=== PATIENT | female | born 1950 | race Caucasian/White ===

== ENCOUNTER 2017-07-13 22:44 | Emergency (ER) | payer MEDICARE, OTHER, SELFPAY ==
[2017-07-13 22:45] VITALS: BP 149/78; PULSE 90; RESP 18; TEMP 36.9; O2SAT 100; BMI 32.0
--- NOTE | 2017-07-13 22:59 | ED.VISSUMM ---
- ER Visit Summary Date of Service: 07/13/17 Chief Complaint: [] Right thigh wound History of Present Illness: The patient is a 67 F [] patient has a superficial right inner thigh wound that she postulates is from a bug bite or tick bite. Denies fevers. Reports slight pinpoint discomfort. Denies significant drainage from the wound. No other complaints at this time. Physical Examination: [] Afebrile, vital signs stable. 67-year-old female no acute distress. Conversational. Examination of the extremities reveals a small 2.5 cm circumferential nonindurated nonfluctuant localized skin wound. There is no signs of cellulitis. There is no inguinal lymphadenopathy. Test Results: [] None. Emergency Department Course and Treatment: [] Patient was given Bactrim DS and Keflex orally in the emergency department as well as prescriptions for the same with instructions to follow-up with the primary care physician. Treatment Plan: [] Outpatient antibiotic treatment. Disposition: [] Discharge, stable. Impression: [] Local wound infection This note was generated with [employer] dictation software. It may contain incorrect words, spelling, and punctuation that were not noted in review of the chart prior to signing ED Disposition - Plan for ED Patient: Chief Complaint: Bite Referrals: Noah Kitchen DO [Primary Care Provider] -
--- NOTE | 2017-07-13 23:01 | ED.DEP ---
ED Disposition - Plan for ED Patient: Disposition: Home or Assisted Living Chief Complaint: Bite Instructions: Wound Care Prescriptions: Cephalexin [Keflex] 500 mg PO Q6 #30 cap Sulfamethoxazole/Trimethoprim [Bactrim Ds Tablet] 1 ea PO BID #14 tab Referrals: Noah Kitchen DO [Primary Care Provider] -
[2017-07-13] MEDS: Smz/Tmp Ds Tablet 1 TABLET PO (23:18)
[2017-07-13] MEDS: Cephalexin 250 MG Capsule 500 MG PO (23:19)
== END 2017-07-13 23:20 | disposition home or self-care (01) ==
PROVIDERS: Emergency Provider Emergency Medicine; Family Provider Family Medicine; PCP Family Medicine
DX: S70.921A Unspecified superficial injury of right thigh, initial encounter (principal); L08.9 Local infection of the skin and subcutaneous tissue, unspecified; W57.XXXA Bitten or stung by nonvenomous insect and other nonvenomous arthropods, initial encounter; Y93.9 Activity, unspecified; Y92.9 Unspecified place or not applicable; I10 Essential (primary) hypertension
CPT/HCPCS: 99283

== ENCOUNTER → 2018-01-28 10:57 | Outpatient (CLI) | payer OTHER, MEDICAID, SELFPAY ==
[2018-01-28 14:21] VITALS: BMI 33.4
[2018-01-29 11:07] LABS: Mucous, Urine 0 SEEN /hpf (<or=2+)
[2018-01-29 11:11] LABS: Color, Urine Straw (Yellow); Glucose, Dipstick Normal (Normal); Ketone-Dipstick Negative (Negative); Leukocyte Esterase-Dipstick 100 /ul (Negative); Nitrite-Dipstick Negative (Negative); Occult Blood-Urine 25 /ul (Negative); Protein-Dipstick Negative (Negative); Specific Gravity, Urine 1.005 (1.002-1.030); Urine Bilirubin Dipstick Negative (Negative); Urine Clarity Clear (Clear); Urine Urobilinogen Normal (Normal)
[2018-01-29 11:28] LABS: White Blood Cells 5-10 SEEN /hpf (0-5)
[2018-01-29 11:29] LABS: Bacteria RARE /hpf (None Seen); Red Blood Cells-Urine 0-5 SEEN /hpf (0-5); Squamous Epithelial Cells - UA 0-5 SEEN /hpf (5-10)
== END ==
PROVIDERS: Family Provider Family Medicine; PCP Family Medicine; Referring Provider Nurse Practitioner Family; Visit Provider Nurse Practitioner Family
DX: R30.0 Dysuria (principal)
CPT/HCPCS: 81001; 87086; 87088

== ENCOUNTER 2018-01-30 09:39 | Emergency (ER) | payer MEDICARE, MEDICAID, SELFPAY ==
[2018-01-28 14:21] VITALS: BMI 33.4
[2018-01-30 09:40] VITALS: BP 162/71; PULSE 76; RESP 18; TEMP 36.4; O2SAT 99; BMI 32.2
--- NOTE | 2018-01-30 09:53 | ED.VISSUMM ---
- ER Visit Summary Date of Service: 01/30/18 Chief Complaint: Left leg pain History of Present Illness: The patient is a 67 F presenting with left leg pain intermittently for the past week. She is concerned about possibility of blood clot. She states she had a DVT/PE in 1979 when she was . She is not on anticoagulants. She has not had any blood clots since that time. She denies chest pain or shortness of breath. Denies fever. Denies trauma. Denies other complaints. Physical Examination: Vitals are stable. Patient is afebrile. Alert no acute distress. HEENT exam is unremarkable. Neck is supple. Lungs are clear and equal bilaterally. Heart is regular rate and rhythm. Abdomen is soft nontender nondistended. No guarding or rebound Extremities left medial mild calf tenderness, no swelling. No warmth or erythema. Normal distal pulses. Skin is warm and dry. No focal neurologic deficit. Remainder of exam is unremarkable. Emergency Department Course and Treatment: Venous Doppler shows no evidence of DVT. Patient is able to ambulate in the ED without difficulty. She is comfortable with discharge home and follow-up with primary care physician. She is advised to return to ED for any worsening complaints. Disposition: Discharge home Impression: Left lower extremity pain This note was generated with [employer] dictation software. It may contain incorrect words, spelling, and punctuation that were not noted in review of the chart prior to signing ED Disposition - Plan for ED Patient: Chief Complaint: Lower Extremity Injury Instructions: ED Veins Varicose Referrals: Noah Kitchen DO [Primary Care Provider] -
--- NOTE | 2018-01-30 09:58 | VDLE_ITS ---
Reason For Study: LEG PAIN RIGHT LEFT CFV is compressible, spontaneous, phasic, GSV is normal. competent and demonstrates normal CFV is compressible, spontaneous, phasic, augmentation. competent, and demonstrates normal Procedure augmentation. Exam performed portable in ED. FV is compressible, spontaneous, phasic, A preliminary report was called and/or faxed competent and demonstrates normal to Dr. Godinez. augmentation. POP V is compressible, spontaneous, phasic, competent and demonstrates normal augmentation. T/P Trunk is compressible. PTV is compressible. LT PerV is compressible. Interpretation Summary Deep veins of the left lower extremity are patent and compressible segmentally. There is no evidence of left lower extremity deep vein thrombosis. Valvular competence appears intact within the proximal deep venous system on the left . The left greater saphenous vein appears patent and compressible segmentally. Ordering Physician: Lucila Godinez Referring Physician: Jorge Luis Kithcen M.D. Performed By: Malathi Galo RVT
--- NOTE | 2018-01-30 10:39 | ED.DEP ---
ED Disposition - Plan for ED Patient: Chief Complaint: Lower Extremity Injury Instructions: ED Veins Varicose Referrals: Noah Kitchen DO [Primary Care Provider] -
[2018-01-30 10:58] VITALS: RESP 16
--- NOTE | 2018-01-30 10:58 | ED.RN ---
REVIEWED D/C INSTRUCTIONS, FOLLOW UP CARE, AND S/S THAT WOULD WARRANT A RETURN TO THE ED WITH PT. PT VERBALIZED AN UNDERSTANDING AND DENIES FURTHER QUESTIONS FOR THIS RN. PT SKIN P/W/D, RESP EVEN AND UNLABORED, PT A&O X 3, NO DISTRESS NOTED. PT AMBULATED OUT OF ED, GAIT STEADY.
== END 2018-01-30 10:59 | disposition home or self-care (01) ==
PROVIDERS: Emergency Provider Emergency Medicine; Family Provider Family Medicine; PCP Family Medicine
DX: I83.812 Varicose veins of left lower extremity with pain (principal); Z86.711 Personal history of pulmonary embolism; I10 Essential (primary) hypertension; Z79.899 Other long term (current) drug therapy; R30.0 Dysuria
CPT/HCPCS: 87086; 87088; 93971; 99282

== ENCOUNTER → 2018-01-30 14:57 | Outpatient (CLI) | payer MEDICAID, MEDICARE, SELFPAY ==
[2018-01-30 09:40] VITALS: BMI 32.2
== END ==
PROVIDERS: Family Provider Family Medicine; PCP Family Medicine; Referring Provider Nurse Practitioner Family; Visit Provider Nurse Practitioner Family
DX: R30.0 Dysuria (principal)
CPT/HCPCS: 87086; 87088

== ENCOUNTER 2018-03-13 20:34 | Observation (INO) | payer MEDICARE, MEDICAID, SELFPAY ==
[2018-03-13] VITALS (7 sets, daily range): BP systolic 136–153; BP diastolic 55–102; PULSE 67–84; RESP 14–18; TEMP 36.3; O2SAT 97–99; BMI 32.2; BMI 33.7
--- NOTE | 2018-03-13 20:51 | CT_ITS ---
STUDY: CT BRAIN WITHOUT CONTRAST REASON FOR EXAM: Female, 67 years old. Headache and paresthesias. RADIATION DOSAGE (If Supplied By Facility): CTDIvol = ( 44.99 ) mGy, DLP = ( 745.49 ) mGycm TECHNIQUE: Transaxial CT imaging of the brain was performed without administration of intravenous contrast material. Individualized dose optimization techniques were used for this CT. COMPARISON: None. FINDINGS: Normal soft tissue structures. Normal calvarium. Normal size ventricles and extra-axial spaces for the patient's age. Normal white matter tracts of the cerebral hemispheres. There are small punctate calcifications of the basal ganglia which are seen in the aging brain as a normal variant. Normal brainstem. Normal cerebellum. There is no intracranial hemorrhage. There are no findings of an acute ischemic infarction. Mild mucosal thickening in the base of the left maxillary sinus. CT/Brain/Head without Contrast IMPRESSION: Normal unenhanced CT scan of the brain. Mild mucosal thickening in the base of the left maxillary sinus. Electronically Signed: Ester Kline MD at 22:01 EST , Service support ,
[2018-03-13 21:11] LABS: Bedside Glucose 80 mg/dL (70-110)
[2018-03-13 21:12] LABS: Basophil# 0.08 X10^3/uL; Eosinophil# 0.24 X10^3/uL; Eosinophils% 2.9 % (0-5); Hemoglobin 11.7 g/dl (12.0-15.0); Lymphocyte % 29.9 % (19-41); Mean Corp Hgb Conc 33.4 g/gl (32-36); Mean Corpuscular Hgb 30.2 pg (27.0-32.0); Mean Corpuscular Volume 90.2 fL (81-99); Mean Platelet Vol. 9.6 fl (6.2-12.0); Monocyte# 0.58 X10^3/uL; Monocyte% 6.9 % (0-10); Neutrophil # 4.95 X10^3/uL (2.7-7.7); Neutrophil % 59.1 % (47-70); POSITIVE COUNT NO; POSITIVE DIFFERENTIAL NO; POSITIVE MORPHOLOGY NO; Platelet Count 232 K/mm3 (150-450); RBC Distribution Width CV 13.1 % (11.6-14.6); Red Blood Count 3.88 M/mm3 (4.2-5.4); White Blood Count 8.4 K/mm3 (4.4-11.0)
--- NOTE | 2018-03-13 21:16 | RAD_ITS ---
STUDY: X-RAY CHEST REASON FOR EXAM: Female, 67 years old. Chest pain TECHNIQUE: Single frontal view of the chest. COMPARISON: None. FINDINGS: The lungs are clear and expanded. There is no demonstrated pleural abnormality. Normal size heart. Normal mediastinum and gisela. Normal visualized pulmonary arteries. Normal visualized aortic arch and descending thoracic aorta. Normal visualized thoracic spine. Normal visualized ribs, clavicles, and shoulders. There is no demonstrated abnormality of the visualized soft tissue structures of the upper abdomen. RAD/Chest 1 View IMPRESSION: Normal x-ray examination of the chest. Electronically Signed: Santosh Corbin MD at 22:29 EST , Service support ,
[2018-03-13 21:19] LABS: Partial Thromboplast Time 25.9 Seconds (24.1-36.2)
[2018-03-13 21:27] LABS: Anion Gap 9 (5-15); BUN 16 mg/dL (7-18); BUN/Creat Ratio 15.1 RATIO (10-20); Calcium,Total 8.7 mg/dL (8.5-10.1); Chloride 110 mmol/L (98-107); Creatinine, Serum 1.06 mg/dL (0.55-1.02); EST Glomerular Filtration Rate 55 mL/min (>60); Est Glom Filt Rate - Afr Amer 66 mL/min (>60); Estimated Creatinine Clearance 36.49 ml/min; Glucose 75 mg/dL (74-106); Potassium 3.8 mmol/L (3.5-5.1); Sodium Level 143 mmol/L (136-145)
--- NOTE | 2018-03-13 22:34 | ED.VISSUMM ---
- ER Visit Summary Date of Service: 03/13/18 Chief Complaint: Headache, dizziness, tingling. History of Present Illness: The patient is a 67 F reports symptoms started 745 1 hour prior to arrival. States that right headache dizziness eye symptoms an hour ago. States been having intermittent tingling left side. Reports troubles get her words out at that time. That is improving. Similar symptoms in the past with TIA. States been having some weakness over the past week with 2 falls in the lower extremities. No injuries from this. She states she does not take aspirin to the causing GI upset. No recent illness of cough. No urinary symptoms. No vomiting or diarrhea. Patient is a diabetic. No cardiac history. Physical Examination: General: Alert and oriented ?3, no acute distress HEENT: Normocephalic, atraumatic. Moist mucosa membranes Neck: supple, nontender. Cardiovascular: Regular rate and rhythm, no murmurs Respiratory: Normal breath sounds, symmetric, no distress Abdomen: Soft, nontender, nondistended Extremities: Nontender, no edema, pulses intact ?4 Neuro: NIH equals 2 for slight drift of both lower extremities. There is some mild weakness at the hip flexors bilaterally. No paresthesias. Test Results: EKG sinus rate of 83, no ST changes. Isolated T wave inversion in leads III. Hemoglobin 11.7. Creatinine 1.06. Coags normal per troponin negative. Finger glucose 80. Chest x-ray negative. CT head no acute process intracranially left maxillary mucosal thickening noted. Emergency Department Course and Treatment: Patient NIH of 2, no indication for TPA. Workup initiated negative. Concerns of patient reporting expressive dysphasia and similar symptoms with her TIA in the past. She does not take aspirin due to causing GI upset. Discussed with hospitalist Dr. Fitch for admission for further workup. Treatment Plan: [] Disposition: Admission Impression: 1. TIA This note was generated with [employer] dictation software. It may contain incorrect words, spelling, and punctuation that were not noted in review of the chart prior to signing ED Disposition - Plan for ED Patient: Disposition: Acute Care Hospital [facility] Diagnosis: TIA (transient ischemic attack) Referrals: Noah Kitchen DO [Primary Care Provider] -
--- NOTE | 2018-03-13 22:38 | ED.DCSUM_ITS ---
- ER Visit Summary Date of Service: 03/13/18 Chief Complaint: Headache, dizziness, tingling. History of Present Illness: The patient is a 67 F reports symptoms started 745 1 hour prior to arrival. States that right headache dizziness eye symptoms an hour ago. States been having intermittent tingling left side. Reports troubles get her words out at that time. That is improving. Similar symptoms in the past with TIA. States been having some weakness over the past week with 2 falls in the lower extremities. No injuries from this. She states she does not take aspirin to the causing GI upset. No recent illness of cough. No urinary symptoms. No vomiting or diarrhea. Patient is a diabetic. No cardiac history. Physical Examination: General: Alert and oriented ?3, no acute distress HEENT: Normocephalic, atraumatic. Moist mucosa membranes Neck: supple, nontender. Cardiovascular: Regular rate and rhythm, no murmurs Respiratory: Normal breath sounds, symmetric, no distress Abdomen: Soft, nontender, nondistended Extremities: Nontender, no edema, pulses intact ?4 Neuro: NIH equals 2 for slight drift of both lower extremities. There is some mild weakness at the hip flexors bilaterally. No paresthesias. Test Results: EKG sinus rate of 83, no ST changes. Isolated T wave inversion in leads III. Hemoglobin 11.7. Creatinine 1.06. Coags normal per troponin negative. Finger glucose 80. Chest x-ray negative. CT head no acute process intracranially left maxillary mucosal thickening noted. Emergency Department Course and Treatment: Patient NIH of 2, no indication for TPA. Workup initiated negative. Concerns of patient reporting expressive dysphasia and similar symptoms with her TIA in the past. She does not take aspirin due to causing GI upset. Discussed with hospitalist Dr. Ficth for admission for further workup. Treatment Plan: [] Disposition: Admission Impression: 1. TIA This note was generated with [employer] dictation software. It may contain incorrect words, spelling, and punctuation that were not noted in review of the chart prior to signing ED Disposition - Plan for ED Patient: Disposition: Acute Care Hospital [facility] Diagnosis: TIA (transient ischemic attack) Referrals: Noah Kitchen DO [Primary Care Provider] -
--- NOTE | 2018-03-13 22:55 | PCM.HP.STD ---
Problem List (1) Osteoporosis Status: Chronic Qualifiers: (2) Vitamin deficiency Status: Chronic (3) GERD (gastroesophageal reflux disease) Status: Chronic (4) IBS (irritable bowel syndrome) Status: Chronic (5) High cholesterol Status: Chronic (6) Hypertension Status: Chronic History of Present Illness Date of Admission: 03/13/18 Chief Complaint: Dizziness, blurry vision, headache. The patient is a 67 year old F with past medical history as mentioned above presented to the emergency room because of multiple complaints including dizziness, headache, blurry vision and tingling. The patient is a very poor informant and was not able to provide consistent history and not able to provide any details of any symptoms that she had. She complains of dizziness, was not able to state when this dizziness started, associated with what she described glassy eyes or blurry vision and swelling about her eyes. She kept going on and on with multiple symptoms and I could not make the patient focus on one symptom and provide good detailed history. She complained of bilateral leg weakness which is equal in both sides, had couple of falls over the last week without significant trauma. She complains of chronic left upper extremity tingling and she thinks that started after she had blown IV line when she was at the hospital. Today, she went to her PCPs office, was seen for abdominal pain/discomfort and was started empirically on ciprofloxacin and Flagyl for presumed diverticulitis according to the patient. She has history of hypertension which seems to be under control with Norvasc, losartan and metoprolol. She has a history of hyperlipidemia and she has been on statins. She has history of irritable bowel syndrome and GERD and she had PPI. She has been frequent visits to her PCPs office as well as colorectal surgery as outpatient for those chronic GI problems. In the emergency department, her vital signs were stable. Her routine blood work was remarkable for hemoglobin of 11.7 g/dL, otherwise normal. EKG revealed normal sinus rhythm without evidence of acute ischemic changes or cardiac arrhythmias. Troponin is negative. Chest x-ray showed no acute findings. CT scan brain showed no acute intracranial hemorrhage. She is being admitted for symptoms of dizziness, blurry vision, tingling on the left arm and bilateral leg weakness which are not typical for either stroke or TIA and she is being admitted for evaluation. Past Medical History Past Medical History (Chronic Problems): Chronic Problems (Last Updated 03/13/18 @ 22:55 by Bryon Fitch MD) Osteoporosis (Chronic) Colitis (Chronic) Segmental and somatic dysfunction of cervical region (Chronic) Segmental and somatic dysfunction of lumbar region (Chronic) Vitamin deficiency (Chronic) GERD (gastroesophageal reflux disease) (Chronic) Polycystic ovary disease (Chronic) Osteopenia (Chronic) Kidney stones (Chronic) IBS (irritable bowel syndrome) (Chronic) High cholesterol (Chronic) Hypertension (Chronic) H/O emotional problems (Chronic) Cataracts, both eyes (Chronic) Asthma (Chronic) Arthritis (Chronic) Anemia (Chronic) Seasonal allergies (Chronic) Medical History: Medical History (Last Updated 03/13/18 @ 22:55 by Bryon Fitch MD) Colitis (Chronic) K52.9 Vitamin deficiency (Chronic) E56.9 GERD (gastroesophageal reflux disease) (Chronic) K21.9 Polycystic ovary disease (Chronic) E28.2 Osteopenia (Chronic) M85.80 Kidney stones (Chronic) N20.0 IBS (irritable bowel syndrome) (Chronic) K58.9 High cholesterol (Chronic) E78.00 Hypertension (Chronic) I10 H/O emotional problems (Chronic) F48.9 Cataracts, both eyes (Chronic) H26.9 Asthma (Chronic) J45.909 Arthritis (Chronic) M19.90 Anemia (Chronic) D64.9 Seasonal allergies (Chronic) J30.2 History of hysterectomy Z90.710 1982 Allergies albuterol Allergy (Severe, Verified 03/13/18 20:36) Chest tightness codeine Allergy (Severe, Verified 03/13/18 20:36) Nausea Sulfa (Sulfonamide Antibiotics) Allergy (Severe, Verified 03/13/18 20:36) Chest tightness dry throat tramadol Allergy (Severe, Verified 03/13/18 20:36) head spin colonidine Allergy (Severe, Uncoded 03/13/18 20:36) head spin narcotics Adverse Reaction (Unknown, Uncoded 03/13/18 20:36) Unknown antibiotics Adverse Reaction (Uncoded 03/13/18 20:36) Shortness of breath More of sensitivity Home Medications: Ambulatory Orders Medication Instructions Recorded atorvastatin 80 mg tablet 80 mg PO QDAY 06/04/17 losartan 100 mg tablet 100 mg PO QDAY 06/04/17 metoprolol succinate ER 100 mg 100 mg PO QDAY #90 tab 06/12/17 tablet,extended release 24 hr furosemide 20 mg tablet 20 mg PO QDAY #30 tab 09/22/17 amlodipine 10 mg tablet 10 mg PO QDAY #90 tab 01/28/18 esomeprazole magnesium 40 mg 40 mg PO QDAY #90 cap 02/20/18 capsule,delayed release ciprofloxacin 500 mg tablet 500 mg PO Q12H #14 tab 03/13/18 metronidazole 500 mg tablet 500 mg PO TID #21 tab 03/13/18 Surgical History: Surgical History (Last Reviewed 02/19/18 @ 17:39 by Radha Vázquez) History of appendectomy Z90.49 Mid 70's History of bilateral cataract extraction Z98.41, Z98.42 History of knee surgery Z98.890 2001 History of uterine suspension procedure Z98.890, Z87.448 Mid 70's Surgical History: cataract, hysterectomy Psychiatric History: - - History of emotional problems. 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 Smoking Status: Never smoker Alcohol: None Drugs: None - *Family History Maternal Family History: Family History (Last Reviewed 02/19/18 @ 17:39 by Radha Vázquez) Father Anesthesia complication Angina pectoris Anxiety Asthma Bleeding disorder Liver cancer Heart disease Hypertension CVA (cerebral vascular accident) Mother Arthritis Osteoporosis Respiratory disease Thyroid disorder Grandfather Alcohol abuse Grandmother Depression Kidney disease Psychiatric care Paternal Family History: Family History (Last Reviewed 02/19/18 @ 17:39 by Radha Vázquez) Father Anesthesia complication Angina pectoris Anxiety Asthma Bleeding disorder Liver cancer Heart disease Hypertension CVA (cerebral vascular accident) Mother Arthritis Osteoporosis Respiratory disease Thyroid disorder Grandfather Alcohol abuse Grandmother Depression Kidney disease Psychiatric care Review of Systems Constitutional: Reports: Weakness. Denies: Anorexia, Chills, Fever Eyes: Reports: Blurred vision. Denies: Double vision, Drainage, Redness HEENT: Denies: Difficulty Hearing, Ear Pain, Eye Pain, Nasal Congestion, Sore Throat Cardiovascular: Reports: Light Headedness. Denies: Chest Pain, Chest Pressure, Heaviness, Palpitations, Syncope Respiratory: Denies: Cough, Pleuritic Pain, Shortness of Breath, Sputum production, Wheezing Gastrointestinal: Reports: Abdominal Pain. Denies: Constipation, Diarrhea, Nausea, Vomiting Genitourinary: Denies: Dysuria, Frequency, Hematuria Musculoskeletal: Denies: Arm Pain, Back Pain, Foot Pain Skin: Denies: Dryness, Rash Neurological: Reports: Blurred vision, Headaches, Numbness, Tingling. Denies: Balance problems, Change in Speech, Confusion Psychiatric: Denies: Anxiety, Depression Endocrine: Denies: Change in Body Habitus, Polydipsia VTE Information - Inpt Only VTE Present on Admission: No VTE Mechan Device Prophylaxis: None VTE Pharm Prophylaxis ordered?: Yes - Physical Exam General: Alert, Oriented x3, Cooperative, No apparent distress HEENT: Atraumatic, PERRLA, EOMI, Normocephalic Oral: Moist Mucosa, No Gingival or Mucosal Lesions/ Ulcerations Neck: Supple, No JVD, Negative Carotid Bruits, Trachea Midline, Thyroid Normal Size and Texture Lungs: Clear to auscultation, No rhonchi, No wheeze, Diminished Cardiovascular: Regular rate, Regular Rhythm, Normal S1, Normal S2, No murmurs Abdomen: Bowel Sounds Present, Soft, Non Tender, Non-Distended, No Hepato-splenomegaly Extremities: No clubbing, No cyanosis, No edema Skin: No rashes, No breakdown Lymphatic: No Cervical, Supraclavicular, or Inguinal Adenopathy Neurological: Cranial nerves II-XII grossly intact, Motor Exam 5/5 strength throughout Psych/Mental Status: Normal Affect, Impulsive, Alert and oriented to time, place, person, mood and affect Vital Signs Temp Pulse Resp BP Pulse Ox 97.4 F L 76 18 140/67 H 99 03/13/18 20:37 03/13/18 22:30 03/13/18 22:30 03/13/18 22:30 03/13/18 22:30 Oxygen Flow Rate (L/min) 2 Oxygen Delivery Method Nasal Cannula Weight: 173 lb Body Mass Index (BMI) 33.7 Finger Stick Blood Glucose 80 Laboratory Tests Past 24 Hrs 03/13/18 03/13/18 03/13/18 21:02 21:02 21:02 WBC 8.4 RBC 3.88 L Hgb 11.7 L Hct 35.0 L MCV 90.2 MCH 30.2 MCHC 33.4 RDW 13.1 RDW Differential 43.0 Plt Count 232 MPV 9.6 Immature Gran % (Auto) 0.200 Neut % (Auto) 59.1 Lymph % (Auto) 29.9 Cottle % (Auto) 6.9 Eos % (Auto) 2.9 Baso % (Auto) 1.0 Absolute Neuts (auto) 5.0 Absolute Lymphs (auto) 2.50 Total Counted Not Reportable PT 13.0 INR 1.0 APTT 25.9 Sodium 143 Potassium 3.8 Chloride 110 H Carbon Dioxide 24.0 Anion Gap 9 BUN 16 Creatinine 1.06 H Estim Creat Clear Calc 36.49 Est GFR (MDRD) Af Amer 66 Est GFR (MDRD) Non-Af 55 L BUN/Creatinine Ratio 15.1 Glucose 75 Calcium 8.7 Troponin I < 0.015 POC Glucose 03/13/18 21:03 POC Glucose 80 Clinical Impression(s) from Imaging Studies Brain CT 03/13/18 20:51 IMPRESSION: Normal unenhanced CT scan of the brain. Mild mucosal thickening in the base of the left maxillary sinus. Electronically Signed: Ester Kline MD at 22:01 EST , Service support , Chest X-Ray 03/13/18 21:16 IMPRESSION: Normal x-ray examination of the chest. Electronically Signed: Santosh Corbin MD at 22:29 EST , Service support , Assessment/Plan This is a 67 years old female patient presented to the ED because of multiple complaints, she is a very poor informant, presented with dizziness, blurry or glassy vision with bilateral leg weakness and numbness on the left arm and she is being admitted for evaluation. #1 dizziness/blurry vision/bilateral leg weakness: Without focal symptoms. Her symptoms are not typical for either stroke or TIA. Patient is very poor informant, was not able to provide detailed history. She has history of emotional problems. At this time, I doubt that her symptoms are due to stroke or TIA. She did mention that she had a history of TIA in the past. Her vital signs are stable. EKG, chest x-ray and CT brain were unremarkable. Troponin is negative. Plan: Admit to PCU for observation, cardiac monitoring, NIH stroke scale, start baby aspirin, continue statins, MRI brain tomorrow morning, PT OT evaluation and treatment. At this time, I do not think that patient needs full stroke workup unless her MRI came back positive for acute stroke. #2 recent diagnosis of presumed diverticulitis: Patient saw her PCP today, started on oral metronidazole and levofloxacin for presumed diverticulitis. At this time, she denies any significant abdominal pain, no diarrhea or constipation. She is afebrile. Plan to continue oral Cipro Floxin and Flagyl. #3 hypertension: Blood pressure stable, continue Norvasc, losartan and metoprolol. #4 hyperlipidemia: Continue statins. #5 irritable bowel syndrome: She has been following up with her PCP as well as colorectal surgery as outpatient. #6 GERD: Continue PPI. #7 DVT prophylaxis: Subcu Lovenox. This note was generated with [employer] dictation software. It may contain incorrect words, spelling, and punctuation that were not noted in checking the note before signing. Code Visit OBSV E&M: 06021 Initial observation care L2
--- NOTE | 2018-03-13 23:00 | HP.PCM_ITS ---
Problem List (1) Osteoporosis Status: Chronic Qualifiers: (2) Vitamin deficiency Status: Chronic (3) GERD (gastroesophageal reflux disease) Status: Chronic (4) IBS (irritable bowel syndrome) Status: Chronic (5) High cholesterol Status: Chronic (6) Hypertension Status: Chronic History of Present Illness Date of Admission: 03/13/18 Chief Complaint: Dizziness, blurry vision, headache. The patient is a 67 year old F with past medical history as mentioned above presented to the emergency room because of multiple complaints including dizziness, headache, blurry vision and tingling. The patient is a very poor informant and was not able to provide consistent history and not able to provide any details of any symptoms that she had. She complains of dizziness, was not able to state when this dizziness started, associated with what she described glassy eyes or blurry vision and swelling about her eyes. She kept going on and on with multiple symptoms and I could not make the patient focus on one symptom and provide good detailed history. She complained of bilateral leg weakness which is equal in both sides, had couple of falls over the last week without significant trauma. She complains of chronic left upper extremity tingling and she thinks that started after she had blown IV line when she was at the hospital. Today, she went to her PCPs office, was seen for abdominal pain/discomfort and was started empirically on ciprofloxacin and Flagyl for presumed diverticulitis according to the patient. She has history of hypertension which seems to be under control with Norvasc, losartan and metoprolol. She has a history of hyperlipidemia and she has been on statins. She has history of irritable bowel syndrome and GERD and she had PPI. She has been frequent visits to her PCPs office as well as colorectal surgery as outpatient for those chronic GI problems. In the emergency department, her vital signs were stable. Her routine blood work was remarkable for hemoglobin of 11.7 g/dL, otherwise normal. EKG revealed normal sinus rhythm without evidence of acute ischemic changes or cardiac arrhythmias. Troponin is negative. Chest x-ray showed no acute findings. CT scan brain showed no acute intracranial hemorrhage. She is being admitted for symptoms of dizziness, blurry vision, tingling on the left arm and bilateral leg weakness which are not typical for either stroke or TIA and she is being admitted for evaluation. Past Medical History Past Medical History (Chronic Problems): Chronic Problems (Last Updated 03/13/18 @ 22:55 by Bryon Fitch MD) Osteoporosis (Chronic) Colitis (Chronic) Segmental and somatic dysfunction of cervical region (Chronic) Segmental and somatic dysfunction of lumbar region (Chronic) Vitamin deficiency (Chronic) GERD (gastroesophageal reflux disease) (Chronic) Polycystic ovary disease (Chronic) Osteopenia (Chronic) Kidney stones (Chronic) IBS (irritable bowel syndrome) (Chronic) High cholesterol (Chronic) Hypertension (Chronic) H/O emotional problems (Chronic) Cataracts, both eyes (Chronic) Asthma (Chronic) Arthritis (Chronic) Anemia (Chronic) Seasonal allergies (Chronic) Medical History: Medical History (Last Updated 03/13/18 @ 22:55 by Bryon Fitch MD) Colitis (Chronic) K52.9 Vitamin deficiency (Chronic) E56.9 GERD (gastroesophageal reflux disease) (Chronic) K21.9 Polycystic ovary disease (Chronic) E28.2 Osteopenia (Chronic) M85.80 Kidney stones (Chronic) N20.0 IBS (irritable bowel syndrome) (Chronic) K58.9 High cholesterol (Chronic) E78.00 Hypertension (Chronic) I10 H/O emotional problems (Chronic) F48.9 Cataracts, both eyes (Chronic) H26.9 Asthma (Chronic) J45.909 Arthritis (Chronic) M19.90 Anemia (Chronic) D64.9 Seasonal allergies (Chronic) J30.2 History of hysterectomy Z90.710 1982 Allergies albuterol Allergy (Severe, Verified 03/13/18 20:36) Chest tightness codeine Allergy (Severe, Verified 03/13/18 20:36) Nausea Sulfa (Sulfonamide Antibiotics) Allergy (Severe, Verified 03/13/18 20:36) Chest tightness dry throat tramadol Allergy (Severe, Verified 03/13/18 20:36) head spin colonidine Allergy (Severe, Uncoded 03/13/18 20:36) head spin narcotics Adverse Reaction (Unknown, Uncoded 03/13/18 20:36) Unknown antibiotics Adverse Reaction (Uncoded 03/13/18 20:36) Shortness of breath More of sensitivity Home Medications: Ambulatory Orders Medication Instructions Recorded atorvastatin 80 mg tablet 80 mg PO QDAY 06/04/17 losartan 100 mg tablet 100 mg PO QDAY 06/04/17 metoprolol succinate ER 100 mg 100 mg PO QDAY #90 tab 06/12/17 tablet,extended release 24 hr furosemide 20 mg tablet 20 mg PO QDAY #30 tab 09/22/17 amlodipine 10 mg tablet 10 mg PO QDAY #90 tab 01/28/18 esomeprazole magnesium 40 mg 40 mg PO QDAY #90 cap 02/20/18 capsule,delayed release ciprofloxacin 500 mg tablet 500 mg PO Q12H #14 tab 03/13/18 metronidazole 500 mg tablet 500 mg PO TID #21 tab 03/13/18 Surgical History: Surgical History (Last Reviewed 02/19/18 @ 17:39 by Radha Vázquez) History of appendectomy Z90.49 Mid 70's History of bilateral cataract extraction Z98.41, Z98.42 History of knee surgery Z98.890 2001 History of uterine suspension procedure Z98.890, Z87.448 Mid 70's Surgical History: cataract, hysterectomy Psychiatric History: - - History of emotional problems. [employer] History: No pertinent [employer] T[employer] history Smoking Status: Never smoker Alcohol: None Drugs: None - *Family History Maternal Family History: Family History (Last Reviewed 02/19/18 @ 17:39 by Radha Vázquez) Father Anesthesia complication Angina pectoris Anxiety Asthma Bleeding disorder Liver cancer Heart disease Hypertension CVA (cerebral vascular accident) Mother Arthritis Osteoporosis Respiratory disease Thyroid disorder Grandfather Alcohol abuse Grandmother Depression Kidney disease Psychiatric care Paternal Family History: Family History (Last Reviewed 02/19/18 @ 17:39 by Radha Vázquez) Father Anesthesia complication Angina pectoris Anxiety Asthma Bleeding disorder Liver cancer Heart disease Hypertension CVA (cerebral vascular accident) Mother Arthritis Osteoporosis Respiratory disease Thyroid disorder Grandfather Alcohol abuse Grandmother Depression Kidney disease Psychiatric care Review of Systems Constitutional: Reports: Weakness. Denies: Anorexia, Chills, Fever Eyes: Reports: Blurred vision. Denies: Double vision, Drainage, Redness HEENT: Denies: Difficulty Hearing, Ear Pain, Eye Pain, Nasal Congestion, Sore Throat Cardiovascular: Reports: Light Headedness. Denies: Chest Pain, Chest Pressure, Heaviness, Palpitations, Syncope Respiratory: Denies: Cough, Pleuritic Pain, Shortness of Breath, Sputum production, Wheezing Gastrointestinal: Reports: Abdominal Pain. Denies: Constipation, Diarrhea, N ausea, Vomiting Genitourinary: Denies: Dysuria, Frequency, Hematuria Musculoskeletal: Denies: Arm Pain, Back Pain, Foot Pain Skin: Denies: Dryness, Rash Neurological: Reports: Blurred vision, Headaches, Numbness, Tingling. Denies: Balance problems, Change in Speech, Confusion Psychiatric: Denies: Anxiety, Depression Endocrine: Denies: Change in Body Habitus, Polydipsia VTE Information - Inpt Only VTE Present on Admission: No VTE Mechan Device Prophylaxis: None VTE Pharm Prophylaxis ordered?: Yes - Physical Exam General: Alert, Oriented x3, Cooperative, No apparent distress HEENT: Atraumatic, PERRLA, EOMI, Normocephalic Oral: Moist Mucosa, No Gingival or Mucosal Lesions/ Ulcerations Neck: Supple, No JVD, Negative Carotid Bruits, Trachea Midline, Thyroid Normal Size and Texture Lungs: Clear to auscultation, No rhonchi, No wheeze, Diminished Cardiovascular: Regular rate, Regular Rhythm, Normal S1, Normal S2, No murmurs Abdomen: Bowel Sounds Present, Soft, Non Tender, Non-Distended, No Hepato- splenomegaly Extremities: No clubbing, No cyanosis, No edema Skin: No rashes, No breakdown Lymphatic: No Cervical, Supraclavicular, or Inguinal Adenopathy Neurological: Cranial nerves II-XII grossly intact, Motor Exam 5/5 strength throughout Psych/Mental Status: Normal Affect, Impulsive, Alert and oriented to time, place, person, mood and affect Vital Signs Temp Pulse Resp BP Pulse Ox 97.4 F L 76 18 140/67 H 99 03/13/18 20:37 03/13/18 22:30 03/13/18 22:30 03/13/18 22:30 03/13/18 22:30 Oxygen Flow Rate (L/min) 2 Oxygen Delivery Method Nasal Cannula Weight: 173 lb Body Mass Index (BMI) 33.7 Finger Stick Blood Glucose 80 Laboratory Tests Past 24 Hrs 03/13/18 03/13/18 03/13/18 21:02 21:02 21:02 WBC 8.4 RBC 3.88 L Hgb 11.7 L Hct 35.0 L MCV 90.2 MCH 30.2 MCHC 33.4 RDW 13.1 RDW Differential 43.0 Plt Count 232 MPV 9.6 Immature Gran % (Auto) 0.200 Neut % (Auto) 59.1 Lymph % (Auto) 29.9 [place] % (Auto) 6.9 Eos % (Auto) 2.9 Baso % (Auto) 1.0 Absolute Neuts (auto) 5.0 Absolute Lymphs (auto) 2.50 Total Counted Not Reportable PT 13.0 INR 1.0 APTT 25.9 Sodium 143 Potassium 3.8 Chloride 110 H Carbon Dioxide 24.0 Anion Gap 9 BUN 16 Creatinine 1.06 H Estim Creat Clear Calc 36.49 Est GFR (MDRD) Af Amer 66 Est GFR (MDRD) Non-Af 55 L BUN/Creatinine Ratio 15.1 Glucose 75 Calcium 8.7 Troponin I < 0.015 POC Glucose 03/13/18 21:03 POC Glucose 80 Clinical Impression(s) from Imaging Studies Brain CT 03/13/18 20:51 IMPRESSION: Normal unenhanced CT scan of the brain. Mild mucosal thickening in the base of the left maxillary sinus. Electronically Signed: Ester Kline MD at 22:01 EST , Service support , Chest X-Ray 03/13/18 21:16 IMPRESSION: Normal x-ray examination of the chest. Electronically Signed: Santosh Corbin MD at 22:29 EST , Service support , Assessment/Plan This is a 67 years old female patient presented to the ED because of multiple complaints, she is a very poor informant, presented with dizziness, blurry or glassy vision with bilateral leg weakness and numbness on the left arm and she is being admitted for evaluation. #1 dizziness/blurry vision/bilateral leg weakness: Without focal symptoms. Her symptoms are not typical for either stroke or TIA. Patient is very poor informant, was not able to provide detailed history. She has history of emotional problems. At this time, I doubt that her symptoms are due to stroke or TIA. She did mention that she had a history of TIA in the past. Her vital signs are stable. EKG, chest x-ray and CT brain were unremarkable. Troponin is negative. Plan: Admit to PCU for observation, cardiac monitoring, NIH stroke scale, start baby aspirin, continue statins, MRI brain tomorrow morning, PT OT evaluation and treatment. At this time, I do not think that patient needs full stroke workup unless her MRI came back positive for acute stroke. #2 recent diagnosis of presumed diverticulitis: Patient saw her PCP today, started on oral metronidazole and levofloxacin for presumed diverticulitis. At this time, she denies any significant abdominal pain, no diarrhea or constipation. She is afebrile. Plan to continue oral Cipro Floxin and Flagyl. #3 hypertension: Blood pressure stable, continue Norvasc, losartan and metoprolol. #4 hyperlipidemia: Continue statins. #5 irritable bowel syndrome: She has been following up with her PCP as well as colorectal surgery as outpatient. #6 GERD: Continue PPI. #7 DVT prophylaxis: Subcu Lovenox. This note was generated with [employer] dictation software. It may contain incorrect words, spelling, and punctuation that were not noted in checking the note before signing. Code Visit OBSV E&M: 49153 Initial observation care L2
[2018-03-14] VITALS (11 sets, daily range): BP systolic 123–152; BP diastolic 58–71; PULSE 59–75; RESP 16–18; TEMP 36.4–36.9; O2SAT 95–99; BMI 33.5
[2018-03-14] MEDS: Acetaminophen 325 MG Tablet 650 MG PO (00:49)
[2018-03-14] MEDS: Ciprofloxacin 500 MG Tablet PO ×2 (00:49→12:19)
[2018-03-14] MEDS: 0.9% Normal Saline 1,000 ML 75 ML IV (00:49)
--- NOTE | 2018-03-14 01:39 | EKG12_ITS ---
Test Reason : Blood Pressure : / mmHG Vent. Rate : 060 BPM Atrial Rate : 060 BPM P-R Int : 160 ms QRS Dur : 082 ms QT Int : 430 ms P-R-T Axes : 039 014 009 degrees QTc Int : 430 ms Normal sinus rhythm Cannot rule out Anterior infarct , age undetermined Abnormal ECG When compared with ECG of 13-MAR-2018 21:07, MANUAL COMPARISON REQUIRED, DATA IS UNCONFIRMED Confirmed by RENZO LEOS, NEISHA ([id number]), general expeditor ELIANA ALLEN ([id number]) on 03/18/2018 2:23:42 PM Referred By: Confirmed By:NEISHA MULLER MD
[2018-03-14 05:38] LABS: Bacteria 0 SEEN /hpf (None Seen); Mucous, Urine 0 SEEN /hpf (<or=2+)
[2018-03-14 05:40] LABS: Color, Urine Yellow (Yellow); Glucose, Dipstick Normal (Normal); Ketone-Dipstick Negative (Negative); Leukocyte Esterase-Dipstick 100 /ul (Negative); Nitrite-Dipstick Negative (Negative); Occult Blood-Urine 10 /ul (Negative); Protein-Dipstick 15 mg/dl (Negative); Urine Bilirubin Dipstick Negative (Negative); Urine Clarity Sl. Cloudy (Clear); Urine Urobilinogen Normal (Normal); Urine pH 6.5 (5.0 - 8.0)
[2018-03-14 05:54] LABS: Squamous Epithelial Cells - UA 0-5 SEEN /hpf (5-10)
[2018-03-14 05:56] LABS: Transitional Epithelial - Ur 0-5 SEEN /hpf (0-5); White Blood Cells 0-5 SEEN /hpf (0-5)
[2018-03-14 05:57] LABS: Red Blood Cells-Urine 0-5 SEEN /hpf (0-5)
[2018-03-14] MEDS: metroNIDAZOLE 500 MG Tablet PO (06:12)
--- NOTE | 2018-03-14 08:00 | MRI_ITS ---
STUDY: MRI BRAIN WITHOUT CONTRAST REASON FOR EXAM: Female, 67 years old. Numbness and tingling. Falls. Memory loss. Ataxia. Speech and vision changes. Left arm burning. TECHNIQUE: Standardized multiplanar fat and water weighted pulse sequences were obtained. COMPARISON: CT head without contrast 03/13/2018. FINDINGS: No restricted diffusion to suspect acute or subacute ischemic infarct. No remote cortical-based ischemic infarcts. No old lacunar cystic infarct. Normal size of the ventricles and extra-axial spaces for the patient's age. Subcortical white matter T2 FLAIR hyperintensity focus in each cerebral hemisphere (series 6, images 15-16). They are nonspecific. No mass effects. No midline shift. Normal bilateral basal ganglia. Normal thalami. There is no extra-axial fluid accumulation. Normal flow voids within the major intracranial circulation suggesting patency by spin echo criteria. Normal sella turcica, pituitary gland, infundibular stalk, optic chiasm and hypothalamus. Normal tectal plate and pineal gland. Normal midbrain, herman and medulla. Normal cerebellum. Normal basal cisterns. Normal bilateral temporal bones. Normal bilateral internal auditory canals. No demonstrated orbital abnormality, within the constraints of a routine brain study. Normal visualized paranasal sinuses. Normal calvarium and skull base. Normal visualized soft tissue structures. Normal visualized upper cervical spine. MRI/Brain without Contrast IMPRESSION: 1. No MRI evidence of acute or subacute ischemic infarct. 2. Small subcortical white matter T2 FLAIR hyperintensity focus in each cerebral hemisphere is nonspecific. They may be migraine-related changes. Other possibilities include reversible vasoconstrictive syndrome, microvascular disease and vasculitis. Electronically Signed: Hayden Corona MD at 10:06 EST , Service support ,
[2018-03-14] MEDS: Furosemide 20 MG Tablet PO (09:15)
[2018-03-14] MEDS: Enoxaparin 40 MG/0.4 ML Syringe SC (09:15)
[2018-03-14] MEDS: amLODIPine 10 MG Tablet PO (09:15)
[2018-03-14] MEDS: Pantoprazole Sodium 40 MG Tablet PO (09:15)
[2018-03-14] MEDS: Losartan Potassium 100 MG Tablet PO (09:16)
[2018-03-14] MEDS: Metoprolol(XL)Succ 100 MG Tablet PO (09:17)
--- NOTE | 2018-03-14 11:24 | PCM.DC ---
- Discharge Diagnoses Current Active Problems: Current Active and Chronic Problems (Last Updated 03/13/18 @ 22:55 by Bryon Fitch MD) You will use the following diet at home:: Cardiac Discharge Activity: Return to Normal Activity Call your doctor if you observe: Shortness of breath, Dizziness, Fainting spells, Chest pain Additional Instructions: Recommend following up with behavioral health at discharge for evaluation for depression/anxiety that may be related to your symptoms. Phone number listed below, you may call friday for appt. Allergies/Adverse Reactions: Allergies albuterol Allergy (Severe, Verified 03/13/18 20:36) Chest tightness codeine Allergy (Severe, Verified 03/13/18 20:36) Nausea Sulfa (Sulfonamide Antibiotics) Allergy (Severe, Verified 03/13/18 20:36) Chest tightness dry throat tramadol Allergy (Severe, Verified 03/13/18 20:36) head spin colonidine Allergy (Severe, Uncoded 03/13/18 20:36) head spin narcotics Adverse Reaction (Unknown, Uncoded 03/13/18 20:36) Unknown antibiotics Adverse Reaction (Uncoded 03/13/18 20:36) Shortness of breath More of sensitivity Medications to take at Discharge Amlodipine [Norvasc] 10 mg PO QHS 03/14/18 Atorvastatin Calcium [Lipitor] 80 mg PO QHS 03/14/18 Ciprofloxacin HCl 500 mg PO Q12H 03/14/18 Esomeprazole Mag Trihydrate [Nexium] 40 mg PO DAILY 03/14/18 Furosemide [Lasix] 20 mg PO DAILY 03/14/18 Losartan Potassium 100 mg PO DAILY 03/14/18 Metoprolol Succinate [Toprol Xl] 100 mg PO DAILY 03/14/18 Metronidazole [Flagyl] 500 mg PO TID 03/14/18 Primary Care Physician: Noah Kitchen DO [Primary Care Provider] - Please follow up with your Primary Care Physician in: 1-2 Weeks Test Results: Test results from this visit will be discussed in further detail at your follow-up appointment, if applicable. Please Follow Up With: [facility] - [phone] When: 1 Week, Call for appt Proposed Discharge Date: 03/14/18
--- NOTE | 2018-03-14 11:29 | DCINST_ITS ---
- Discharge Diagnoses Current Active Problems: Current Active and Chronic Problems (Last Updated 03/13/18 @ 22:55 by Bryon Fitch MD) You will use the following diet at home:: Cardiac Discharge Activity: Return to Normal Activity Call your doctor if you observe: Shortness of breath, Dizziness, Fainting spells, Chest pain Additional Instructions: Recommend following up with behavioral health at discharge for evaluation for depression/anxiety that may be related to your symptoms. Phone number listed below, you may call friday for appt. Allergies/Adverse Reactions: Allergies albuterol Allergy (Severe, Verified 03/13/18 20:36) Chest tightness codeine Allergy (Severe, Verified 03/13/18 20:36) Nausea Sulfa (Sulfonamide Antibiotics) Allergy (Severe, Verified 03/13/18 20:36) Chest tightness dry throat tramadol Allergy (Severe, Verified 03/13/18 20:36) head spin colonidine Allergy (Severe, Uncoded 03/13/18 20:36) head spin narcotics Adverse Reaction (Unknown, Uncoded 03/13/18 20:36) Unknown antibiotics Adverse Reaction (Uncoded 03/13/18 20:36) Shortness of breath More of sensitivity Medications to take at Discharge Amlodipine [Norvasc] 10 mg PO QHS 03/14/18 Atorvastatin Calcium [Lipitor] 80 mg PO QHS 03/14/18 Ciprofloxacin HCl 500 mg PO Q12H 03/14/18 Esomeprazole Mag Trihydrate [Nexium] 40 mg PO DAILY 03/14/18 Furosemide [Lasix] 20 mg PO DAILY 03/14/18 Losartan Potassium 100 mg PO DAILY 03/14/18 Metoprolol Succinate [Toprol Xl] 100 mg PO DAILY 03/14/18 Metronidazole [Flagyl] 500 mg PO TID 03/14/18 Primary Care Physician: Noah Kitchen DO [Primary Care Provider] - Please follow up with your Primary Care Physician in: 1-2 Weeks Test Results: Test results from this visit will be discussed in further detail at your follow- up appointment, if applicable. Please Follow Up With: [facility] - [phone] When: 1 Week, Call for appt Proposed Discharge Date: 03/14/18
--- NOTE | 2018-03-14 11:31 | PCM.DC.SUM ---
Discharge Date and Diagnosis Date of Admission: 03/13/18 Date of Discharge: 03/14/18 - Primary Discharge Diagnosis Active and Suspected Problems (Last Updated 03/13/18 @ 22:55 by Bryon Fitch MD) 1. Dizziness, blurred vision, headache-CVA/TIA ruled out. Symptoms resolved. 2. Recent diagnosis presumed diverticulitis 3. Hypertension 4. Hyperlipidemia 5. IBS 6. GERD - Secondary Discharge Diagnosis Chronic Problems (Last Updated 03/13/18 @ 22:55 by Bryon Fitch MD) Osteoporosis (Chronic) Colitis (Chronic) Segmental and somatic dysfunction of cervical region (Chronic) Segmental and somatic dysfunction of lumbar region (Chronic) Vitamin deficiency (Chronic) GERD (gastroesophageal reflux disease) (Chronic) Polycystic ovary disease (Chronic) Osteopenia (Chronic) Kidney stones (Chronic) IBS (irritable bowel syndrome) (Chronic) High cholesterol (Chronic) Hypertension (Chronic) H/O emotional problems (Chronic) Cataracts, both eyes (Chronic) Asthma (Chronic) Arthritis (Chronic) Anemia (Chronic) Seasonal allergies (Chronic) Hospital Course and Treatment Imaging Results: Diagnostic Data Brain CT 03/13/18 20:51 IMPRESSION: Normal unenhanced CT scan of the brain. Mild mucosal thickening in the base of the left maxillary sinus. Electronically Signed: Ester Kline MD at 22:01 EST , Service support , Chest X-Ray 03/13/18 21:16 IMPRESSION: Normal x-ray examination of the chest. Electronically Signed: Santosh Corbin MD at 22:29 EST , Service support , Brain MRI 03/14/18 08:00 IMPRESSION: 1. No MRI evidence of acute or subacute ischemic infarct. 2. Small subcortical white matter T2 FLAIR hyperintensity focus in each cerebral hemisphere is nonspecific. They may be migraine-related changes. Other possibilities include reversible vasoconstrictive syndrome, microvascular disease and vasculitis. Electronically Signed: Hayden Corona MD at 10:06 EST , Service support , Operations: None Procedures: None Summary of Care Provided: The patient is a 67 year old F admitted 03/13/18 due to dizziness, blurred vision and headache. Patient reports this is been ongoing intermittently although cannot give specific details on presenting symptoms. She did see primary care physician day of admission and did not report any of these complaints to her primary care provider. Patient has frequent visits to primary care provider with multiple nonspecific complaints, overall suspected to be psychosomatic in nature. Patient denies further symptoms day of discharge. Chest x-ray and brain CT unremarkable. Troponin negative. MRI of brain without acute or subacute infarct. CVA/TIA ruled out. Patient has a past medical history of hypertension, hyperlipidemia, irritable bowel syndrome, GERD, recent diagnosis of presumed diverticulitis on oral therapy with ciprofloxacin and Flagyl. Patient was referred to behavioral health for mental health evaluation. Follow-up with primary care physician in 1-2 weeks. General: Alert, Oriented x3, Cooperative, No apparent distress HEENT: Atraumatic, PERRLA, EOMI, Normocephalic Oral: Moist Mucosa, No Gingival or Mucosal Lesions/ Ulcerations Neck: Supple, No JVD, Negative Carotid Bruits Lungs: Clear to auscultation, Diminished Cardiovascular: Regular rate, Regular Rhythm, Normal S1, Normal S2, No murmurs Abdomen: Bowel Sounds Present, Soft, Non Tender, Non-Distended Extremities: No clubbing, No cyanosis, No edema Skin: No rashes, No breakdown Lymphatic: No Cervical, Supraclavicular, or Inguinal Adenopathy Neurological: Cranial nerves II-XII grossly intact, Motor Exam 5/5 strength throughout Psych/Mental Status: Normal Affect, scattered thoughts Patient seen and examined prior to discharge. Physical assessment as noted above. Patient is stable for discharge with follow up recommendations as noted above. This patient was seen by XOCHITL Gutierrez under the supervision of Dr. Gray. - Physical Exam Vital Signs Temp Pulse Resp BP Pulse Ox 97.9 F 63 16 152/62 H 99 03/14/18 08:00 03/14/18 09:17 03/14/18 08:00 03/14/18 08:00 03/14/18 08:00 Oxygen Flow Rate (L/min) 2 Oxygen Delivery Method Room Air Weight: 171 lb 11.841 oz Body Mass Index (BMI) 33.5 Finger Stick Blood Glucose 80 Intake and Output for Last 24 Hours 03/12/18 03/13/18 03/14/18 23:59 23:59 23:59 Intake Total 463 / 463 Balance 463 / 463 Laboratory Tests Past 24 Hrs 03/13/18 03/13/18 03/13/18 21:02 21:02 21:02 WBC 8.4 RBC 3.88 L Hgb 11.7 L Hct 35.0 L MCV 90.2 MCH 30.2 MCHC 33.4 RDW 13.1 RDW Differential 43.0 Plt Count 232 MPV 9.6 Immature Gran % (Auto) 0.200 Neut % (Auto) 59.1 Lymph % (Auto) 29.9 [place] % (Auto) 6.9 Eos % (Auto) 2.9 Baso % (Auto) 1.0 Absolute Neuts (auto) 5.0 Absolute Lymphs (auto) 2.50 Total Counted Not Reportable PT 13.0 INR 1.0 APTT 25.9 Sodium 143 Potassium 3.8 Chloride 110 H Carbon Dioxide 24.0 Anion Gap 9 BUN 16 Creatinine 1.06 H Estim Creat Clear Calc 36.49 Est GFR (MDRD) Af Amer 66 Est GFR (MDRD) Non-Af 55 L BUN/Creatinine Ratio 15.1 Glucose 75 Calcium 8.7 Troponin I < 0.015 Urine Color Urine Clarity Urine pH Ur Specific [place] Urine Protein Urine Glucose (UA) Urine Ketones Urine Occult Blood Urine Nitrite Urine Bilirubin Urine Urobilinogen Ur Leukocyte Esterase Urine RBC Urine WBC Ur Squamous Epith Cells Ur Transition Epith Cell Urine Bacteria Urine Mucus 03/14/18 05:30 WBC RBC Hgb Hct MCV MCH MCHC RDW RDW Differential Plt Count MPV Immature Gran % (Auto) Neut % (Auto) Lymph % (Auto) [place] % (Auto) Eos % (Auto) Baso % (Auto) Absolute Neuts (auto) Absolute Lymphs (auto) Total Counted PT INR APTT Sodium Potassium Chloride Carbon Dioxide Anion Gap BUN Creatinine Estim Creat Clear Calc Est GFR (MDRD) Af Amer Est GFR (MDRD) Non-Af BUN/Creatinine Ratio Glucose Calcium Troponin I Urine Color Yellow Urine Clarity Sl. Cloudy Urine pH 6.5 Ur Specific [place] 1.010 Urine Protein 15 H Urine Glucose (UA) Normal Urine Ketones Negative Urine Occult Blood 10 H Urine Nitrite Negative Urine Bilirubin Negative Urine Urobilinogen Normal Ur Leukocyte Esterase 100 H Urine RBC 0-5 SEEN Urine WBC 0-5 SEEN Ur Squamous Epith Cells 0-5 SEEN Ur Transition Epith Cell 0-5 SEEN Urine Bacteria 0 SEEN Urine Mucus 0 SEEN POC Glucose 03/13/18 21:03 POC Glucose 80 Discharge Diet: Low fat/ Low Cholesterol Discharge Activity: Return to Normal Activity Call your doctor if you observe: Shortness of breath, Dizziness, Fainting spells, Chest pain Home Medications: Medications to take at Discharge Amlodipine [Norvasc] 10 mg PO QHS 03/14/18 Atorvastatin Calcium [Lipitor] 80 mg PO QHS 03/14/18 Ciprofloxacin HCl 500 mg PO Q12H 03/14/18 Esomeprazole Mag Trihydrate [Nexium] 40 mg PO DAILY 03/14/18 Furosemide [Lasix] 20 mg PO DAILY 03/14/18 Losartan Potassium 100 mg PO DAILY 03/14/18 Metoprolol Succinate [Toprol Xl] 100 mg PO DAILY 03/14/18 Metronidazole [Flagyl] 500 mg PO TID 03/14/18 Primary Care Physician: Noah Kitchen DO [Primary Care Provider] - Please follow up with your Primary Care Physician in: 1-2 Weeks Please Follow Up With: Behavioral Health - [phone] When: 1 Week, Call for appt Disposition: Home Minutes spent on discharge:: 35 Patient Condition:: Stable Medical Necessity - Tobacco Use Smoking Status: Never smoker Tobacco Use: Non-smoker Meaningful Use Info Meaningful Use Diagnoses (Choose all that apply): None applicable
--- NOTE | 2018-03-14 11:39 | DS.PCM_ITS ---
Discharge Date and Diagnosis Date of Admission: 03/13/18 Date of Discharge: 03/14/18 - Primary Discharge Diagnosis Active and Suspected Problems (Last Updated 03/13/18 @ 22:55 by Bryon Fitch MD) 1. Dizziness, blurred vision, headache-CVA/TIA ruled out. Symptoms resolved. 2. Recent diagnosis presumed diverticulitis 3. Hypertension 4. Hyperlipidemia 5. IBS 6. GERD - Secondary Discharge Diagnosis Chronic Problems (Last Updated 03/13/18 @ 22:55 by Bryon Fitch MD) Osteoporosis (Chronic) Colitis (Chronic) Segmental and somatic dysfunction of cervical region (Chronic) Segmental and somatic dysfunction of lumbar region (Chronic) Vitamin deficiency (Chronic) GERD (gastroesophageal reflux disease) (Chronic) Polycystic ovary disease (Chronic) Osteopenia (Chronic) Kidney stones (Chronic) IBS (irritable bowel syndrome) (Chronic) High cholesterol (Chronic) Hypertension (Chronic) H/O emotional problems (Chronic) Cataracts, both eyes (Chronic) Asthma (Chronic) Arthritis (Chronic) Anemia (Chronic) Seasonal allergies (Chronic) Hospital Course and Treatment Imaging Results: Diagnostic Data Brain CT 03/13/18 20:51 IMPRESSION: Normal unenhanced CT scan of the brain. Mild mucosal thickening in the base of the left maxillary sinus. Electronically Signed: Ester Kline MD at 22:01 EST , Service support , Chest X-Ray 03/13/18 21:16 IMPRESSION: Normal x-ray examination of the chest. Electronically Signed: Santosh Corbin MD at 22:29 EST , Service support , Brain MRI 03/14/18 08:00 IMPRESSION: 1. No MRI evidence of acute or subacute ischemic infarct. 2. Small subcortical white matter T2 FLAIR hyperintensity focus in each cerebral hemisphere is nonspecific. They may be migraine-related changes. Other possibilities include reversible vasoconstrictive syndrome, microvascular disease and vasculitis. Electronically Signed: Hayden Corona MD at 10:06 EST , Service support , Operations: None Procedures: None Summary of Care Provided: The patient is a 67 year old F admitted 03/13/18 due to dizziness, blurred vision and headache. Patient reports this is been ongoing intermittently although cannot give specific details on presenting symptoms. She did see primary care physician day of admission and did not report any of these complaints to her primary care provider. Patient has frequent visits to primary care provider with multiple nonspecific complaints, overall suspected to be psychosomatic in nature. Patient denies further symptoms day of discharge. Chest x-ray and brain CT unremarkable. Troponin negative. MRI of brain without acute or subacute infarct. CVA/TIA ruled out. Patient has a past medical history of hypertension, hyperlipidemia, irritable bowel syndrome, GERD, recent diagnosis of presumed diverticulitis on oral therapy with ciprofloxacin and Flagyl. Patient was referred to behavioral health for mental health evaluation. Follow- up with primary care physician in 1-2 weeks. General: Alert, Oriented x3, Cooperative, No apparent distress HEENT: Atraumatic, PERRLA, EOMI, Normocephalic Oral: Moist Mucosa, No Gingival or Mucosal Lesions/ Ulcerations Neck: Supple, No JVD, Negative Carotid Bruits Lungs: Clear to auscultation, Diminished Cardiovascular: Regular rate, Regular Rhythm, Normal S1, Normal S2, No murmurs Abdomen: Bowel Sounds Present, Soft, Non Tender, Non-Distended Extremities: No clubbing, No cyanosis, No edema Skin: No rashes, No breakdown Lymphatic: No Cervical, Supraclavicular, or Inguinal Adenopathy Neurological: Cranial nerves II-XII grossly intact, Motor Exam 5/5 strength throughout Psych/Mental Status: Normal Affect, scattered thoughts Patient seen and examined prior to discharge. Physical assessment as noted above. Patient is stable for discharge with follow up recommendations as noted above. This patient was seen by XOCHITL Gutierrez under the supervision of Dr. Gray. - Physical Exam Vital Signs Temp Pulse Resp BP Pulse Ox 97.9 F 63 16 152/62 H 99 03/14/18 08:00 03/14/18 09:17 03/14/18 08:00 03/14/18 08:00 03/14/18 08:00 Oxygen Flow Rate (L/min) 2 Oxygen Delivery Method Room Air Weight: 171 lb 11.841 oz Body Mass Index (BMI) 33.5 Finger Stick Blood Glucose 80 Intake and Output for Last 24 Hours 03/12/18 03/13/18 03/14/18 23:59 23:59 23:59 Intake Total 463 / 463 Balance 463 / 463 Laboratory Tests Past 24 Hrs 03/13/18 03/13/18 03/13/18 21:02 21:02 21:02 WBC 8.4 RBC 3.88 L Hgb 11.7 L Hct 35.0 L MCV 90.2 MCH 30.2 MCHC 33.4 RDW 13.1 RDW Differential 43.0 Plt Count 232 MPV 9.6 Immature Gran % (Auto) 0.200 Neut % (Auto) 59.1 Lymph % (Auto) 29.9 [place] % (Auto) 6.9 Eos % (Auto) 2.9 Baso % (Auto) 1.0 Absolute Neuts (auto) 5.0 Absolute Lymphs (auto) 2.50 Total Counted Not Reportable PT 13.0 INR 1.0 APTT 25.9 Sodium 143 Potassium 3.8 Chloride 110 H Carbon Dioxide 24.0 Anion Gap 9 BUN 16 Creatinine 1.06 H Estim Creat Clear Calc 36.49 Est GFR (MDRD) Af Amer 66 Est GFR (MDRD) Non-Af 55 L BUN/Creatinine Ratio 15.1 Glucose 75 Calcium 8.7 Troponin I < 0.015 Urine Color Urine Clarity Urine pH Ur Specific [place] Urine Protein Urine Glucose (UA) Urine Ketones Urine Occult Blood Urine Nitrite Urine Bilirubin Urine Urobilinogen Ur Leukocyte Esterase Urine RBC Urine WBC Ur Squamous Epith Cells Ur Transition Epith Cell Urine Bacteria Urine Mucus 03/14/18 05:30 WBC RBC Hgb Hct MCV MCH MCHC RDW RDW Differential Plt Count MPV Immature Gran % (Auto) Neut % (Auto) Lymph % (Auto) [place] % (Auto) Eos % (Auto) Baso % (Auto) Absolute Neuts (auto) Absolute Lymphs (auto) Total Counted PT INR APTT Sodium Potassium Chloride Carbon Dioxide Anion Gap BUN Creatinine Estim Creat Clear Calc Est GFR (MDRD) Af Amer Est GFR (MDRD) Non-Af BUN/Creatinine Ratio Glucose Calcium Troponin I Urine Color Yellow Urine Clarity Sl. Cloudy Urine pH 6.5 Ur Specific [place] 1.010 Urine Protein 15 H Urine Glucose (UA) Normal Urine Ketones Negative Urine Occult Blood 10 H Urine Nitrite Negative Urine Bilirubin Negative Urine Urobilinogen Normal Ur Leukocyte Esterase 100 H Urine RBC 0-5 SEEN Urine WBC 0-5 SEEN Ur Squamous Epith Cells 0-5 SEEN Ur Transition Epith Cell 0-5 SEEN Urine Bacteria 0 SEEN Urine Mucus 0 SEEN POC Glucose 03/13/18 21:03 POC Glucose 80 Discharge Diet: Low fat/ Low Cholesterol Discharge Activity: Return to Normal Activity Call your doctor if you observe: Shortness of breath, Dizziness, Fainting spells, Chest pain Home Medications: Medications to take at Discharge Amlodipine [Norvasc] 10 mg PO QHS 03/14/18 Atorvastatin Calcium [Lipitor] 80 mg PO QHS 03/14/18 Ciprofloxacin HCl 500 mg PO Q12H 03/14/18 Esomeprazole Mag Trihydrate [Nexium] 40 mg PO DAILY 03/14/18 Furosemide [Lasix] 20 mg PO DAILY 03/14/18 Losartan Potassium 100 mg PO DAILY 03/14/18 Metoprolol Succinate [Toprol Xl] 100 mg PO DAILY 03/14/18 Metronidazole [Flagyl] 500 mg PO TID 03/14/18 Primary Care Physician: Noah Kitchen DO [Primary Care Provider] - Please follow up with your Primary Care Physician in: 1-2 Weeks Please Follow Up With: Behavioral Health - [phone] When: 1 Week, Call for appt Disposition: Home Minutes spent on discharge:: 35 Patient Condition:: Stable Medical Necessity - Tobacco Use Smoking Status: Never smoker Tobacco Use: Non-smoker Meaningful Use Info Meaningful Use Diagnoses (Choose all that apply): None applicable
== END 2018-03-14 11:26 | disposition home or self-care (01) ==
LOC: ED 22:52 → PCU 23:01
PROVIDERS: Admitting Provider Hospitalist; Emergency Provider Emergency Medicine; Family Provider Family Medicine; PCP Family Medicine; Visit Provider Internal Medicine
DX: R42 Dizziness and giddiness (principal); H53.8 Other visual disturbances; R51 Headache; R29.702 NIHSS score 2; R47.02 Dysphasia; K21.9 Gastro-esophageal reflux disease without esophagitis; K58.9 Irritable bowel syndrome, unspecified; E78.00 Pure hypercholesterolemia, unspecified; I10 Essential (primary) hypertension; Z79.899 Other long term (current) drug therapy; M19.90 Unspecified osteoarthritis, unspecified site; E11.9 Type 2 diabetes mellitus without complications
CPT/HCPCS: 70450; 70551; 71045; 80048; 81001; 82962; 84484; 85025; 85610; 85730; 93005; 96360; 96361; 96372; 97161; 97165; 97802; 99218; 99285; J7030; A4216; G0378

== ENCOUNTER → 2018-03-16 15:27 | Outpatient (CLI) | payer MEDICARE, SELFPAY ==
[2018-03-14 10:22] VITALS: BMI 33.5
== END ==
PROVIDERS: Family Provider Family Medicine; PCP Family Medicine; Referring Provider Internal Medicine; Visit Provider Internal Medicine
DX: K92.1 Melena (principal)
CPT/HCPCS: 82274

== ENCOUNTER 2018-10-11 06:55 | Emergency (ER) | payer MEDICARE, MEDICAID, SELFPAY ==
[2018-09-03 09:30] VITALS: BMI 33.2
[2018-10-11 06:56] VITALS: BP 154/60; PULSE 81; RESP 16; TEMP 36.2; O2SAT 100; BMI 33.5
[2018-10-11 08:00] LABS: D-Dimer Quantitative (DVT/PE) 0.64 FEU/ug/m (0.27-0.49)
--- NOTE | 2018-10-11 08:01 | ED.RN ---
ddimer 0.64 called from the lab. dr bansal aware
--- NOTE | 2018-10-11 08:13 | VDLE_ITS ---
Reason For Study: PAIN Procedure LEFT Exam performed portable in ED. CFV is compressible, spontaneous, phasic, A preliminary report was called and/or faxed competent, and demonstrates normal to ED. augmentation. FV is compressible, spontaneous, phasic, competent and demonstrates normal augmentation. POP V is compressible, spontaneous, phasic, competent and demonstrates normal augmentation. T/P Trunk is compressible. PTV is compressible. LT PerV is compressible. Left GSV has been ablated and is not visualized throughout with exception of at ankle, which is compressible. Left Superficial varicosities from knee to calf are dilated and NONCOMPRESSIBLE s/p recent ablation procedure with Dr Castillo. Interpretation Summary 1. No DVT left leg. 2. Successful left saphenous laser and varithena chemical ablation. Ordering Physician: Sunday Riggs Referring Physician: Noah Kitchen Performed By: Judy Gardner, FIDELIA, RVT
--- NOTE | 2018-10-11 09:04 | ED.DCSUM_ITS ---
- ER Visit Summary Date of Service: 10/11/18 Chief Complaint: Left lower extremity pain History of Present Illness: The patient is a 68 F history of prior DVT. Patient had vein stripping procedures done before and injections. About 2 months ago. Yesterday she started noticing some mild bruising and discomfort medial and inferior to her left knee. She denies any fall or trauma. No chest pain or shortness of breath. She is currently on no blood thinners. Physical Examination: Older female no acute distress. Vital signs are stable afebrile. Pulse ox on room air no signs of hypoxia. H EENT exam unremarkable. Neck nontender. Lungs clear to auscultation. Heart regular rate and rhythm no murmur. Abdomen soft and nontender. Extremities moves all 4. Neurovascularly intact. Calves are nontender without edema or cords. Medial and inferior to her left knee there is some mild bruising and tenderness. There is no cellulitis. There is no bony deformity. She has normal range of motion to her left hip, left knee left ankle and foot. Left foot is neurovascularly intact. Neurologically she is awake and alert. Test Results: D-dimer was mildly elevated at 0.64. Noninvasive study left lower extremity shows superficial thrombophlebitis medial and inferior to the left knee but no DVT. I specifically spoke with the distribution field technician about the test results. Emergency Department Course and Treatment: Pain was mildly elevated therefore a noninvasive study was obtained. Repeat exam the patient is doing well. Treatment Plan: Motrin for pain and inflammation. Warm compresses to the area. Follow-up. Disposition: Discharge Impression: Acute left lower extremity pain and swelling secondary to superficial thrombophlebitis Status post recent vein stripping procedure This note was generated with [employer]ero[employer] dictation software. It may contain incorrect words, spelling, and punctuation that were not noted in review of the chart prior to signing ED Disposition - Plan for ED Patient: Referrals: Noah Kitchen DO [Primary Care Provider] -
[2018-10-11 09:18] VITALS: BP 153/74; PULSE 78; RESP 16; O2SAT 99
--- NOTE | 2018-10-11 11:05 | ED.DEP ---
ED Disposition - Plan for ED Patient: Disposition: Home or Assisted Living Instructions: THROMBOPHLEBITIS, Superficial Referrals: Noah Kitchen, [Primary Care Provider] - 1 Week Additional Instructions: Warm compresses and using pads in the left inside your knee and lower leg. You have a superficial thrombophlebitis to that area. However you do not have a blood clot. Motrin for pain and inflammation. Follow-up with your doctor if not improving.
[2018-10-11 11:22] VITALS: BP 153/64; PULSE 72; RESP 18; O2SAT 100
--- NOTE | 2018-10-11 11:34 | ED.RN ---
daughter violet to come pick patient up. reviewed dc. pt denies questions and verbalizes understanding.
== END 2018-10-11 11:45 | disposition home or self-care (01) ==
PROVIDERS: Emergency Provider Emergency Medicine; Family Provider Family Medicine; PCP Family Medicine
DX: I80.02 Phlebitis and thrombophlebitis of superficial vessels of left lower extremity (principal); Z86.718 Personal history of other venous thrombosis and embolism; Z98.890 Other specified postprocedural states; E11.9 Type 2 diabetes mellitus without complications; E78.00 Pure hypercholesterolemia, unspecified; Z86.73 Personal history of transient ischemic attack (TIA), and cerebral infarction without residual deficits; Z87.442 Personal history of urinary calculi; Z79.82 Long term (current) use of aspirin; Z79.899 Other long term (current) drug therapy
CPT/HCPCS: 85379; 93971; 99284

== ENCOUNTER 2018-11-09 11:30 | Outpatient (RCR) | payer MEDICARE, SELFPAY ==
[2018-06-18 10:22] VITALS: BMI 33.2
[2018-09-03 09:30] VITALS: BMI 33.2
--- NOTE | 2018-09-07 14:14 | HP.PTEVAL ---
Patient's Visit Information ANSELMO EDMONDSON is a 68 year old F referred to Physical Therapy by Biju Haas MD with a diagnosis of Weakness on Walking. Date of Evaluation: 09/07/18 Physical Therapist: Nydia Gilliam DPT - Visit Plan Frequency: 2x /Week Duration: 4 Weeks Plan: Focus on LE and core s/s with functional mobility - Subjective Findings: Had a mini stroke in Mar- ever since then her body has cratered out. Slowly but surely she is getting back to doing things. Her biggest concern at this point is just getting moving again. MD wants her to move more. She lives alone in a small apartment. Has not had any falls since Mar. The right foot seems to be a problem. The top of the foot cramps and she can't stand or walk. Feels like the bones in her foot are going to crack and be painful. Feels like she is slower but she moves as much as she is able. Has ordered a stick cane but does not currently use it. She reports 10/10 pain in the foot Best: 0/10. Eases: massaging it out. Went to a foot doctor and she put a wedge in the shoe. She reports that the foot isn't any worse but its not any better. Is not comfortable standing or walking long distances. Can do small little stores but is unable to do the bigger stores. Goals is to be more mobile and get stronger. Does have aches all over- sees chiropractor. Sleep is disturbed. PMHx/Meds: listed in chart. Work: retired. - Objective Posture: FH, RS- can correct with verbal cues but does not maintain. Gait: antalgic- wide DORIE- decreased stance on the right LE with poor heel/toe pattern on the right. Stairs:asc/desc non recip- when recip required constant VCs to take next step- slow and bilateral UE a. HR/TR: able with UE A. SLS: WS but unable to SLS without significant ue a. Palpation: not tender. Balance: standing static: fair dynamic: poor- unable to tandem stance and perform head turns with ambulation. Strength: Left ankle: 5/5, Knee: 4+/5, HIp: 4/5, Right: ankle: 4-/5, knee: 4+/5, Hip: 4-/5 Core: poor. Flex: HS: moderate, Gastroc: moderate. Special Test: dural signs: positive on the right, Slump test: positive on the right. - Goals Goal 1:: Patient will be I with HEP and progression Goal Time Frame: 4-6 Weeks Goal 2:: Patient will ambulate <300 feet with a normalized gait pattern Goal Time Frame: 4-6 Weeks Goal 3:: Patient will asc/desc 8 stairs recip with 1 HR Goal Time Frame: 4-6 Weeks Goal 4:: Patient will maintain proper posture t/o tx session to demo increased core s/s Goal Time Frame: 4-6 Weeks Goal 5:: Patient will report 0/10 pain for 1 week Goal Time Frame: 4-6 Weeks - Rehabilitation Potential Physical Therapy Diagnosis: Patient presents with hypomobility- she has decreased strength, endurance and proprioception leading to poor balance and decreased ability to peform ADL's efficently and safely. Rehabilitation Potential: Fair - Anticipated Interventions Patient/Client Instruction: Educate patient on: Benefits of Fitness Program Therapeutic Exercise to Include: Strength training, Endurance training, Balance training, Body mechanics, Postural training, Flexibilty training, Gait and locomotor training, Dynamic Lumbar Stabilization For the Purpose of:: To improve muscle performance and motor function Thank you for the opportunity to evaluate your patient. For Medicare and Medicare HMO plans, please review the plan of care and approve it. It will need to be FAXED BACK to us at [phone] for Medicare purposes. For Medicare only, by signing this I certify the plan of care. Please let me know if there are questions or concerns regarding this plan of care. Physician Signature: Date:
--- NOTE | 2018-10-06 10:05 | HP.SP.AD_ITS ---
History - History Date of Eval: 10/06/18 Medical Diagnosis (from RX): CVA Date of Onset of Diagnosis: March 2018 Previous speech therapy: No Other Relevant Medical History/Diagnoses/Surgery: Mini stroke in March 2018. Patient reported that she has mini strokes before but not diagnosed. GERD, high blood pressure, pulmonary embolism, pnuemonia in 89, arthritis, eye surgery, diverticulitis. Smoking Status: Never smoker Hx Smoking: No Hx Tobacco Use: No - Pain Is pain an issue with your current prescribed condition?: Yes - Personal Education History: Some college. Occupation: Retired Right Hearing Abillity: Normal Left Hearing Abillity: Normal Visual Assistive Devices: None Patients Living Arrangements: Alone Patient Allergies - Allergies Allergies albuterol Allergy (Severe, Verified 04/14/18 09:10) Chest tightness codeine Allergy (Severe, Verified 04/14/18 09:10) Nausea Iodine and Iodide Containing Produc Allergy (Severe, Verified 04/14/18 09:11) Anaphylaxis Sulfa (Sulfonamide Antibiotics) Allergy (Severe, Verified 04/14/18 09:10) Chest tightness dry throat tramadol Allergy (Severe, Verified 04/14/18 09:10) head spin colonidine Allergy (Severe, Uncoded 04/14/18 09:10) head spin narcotics Adverse Reaction (Unknown, Uncoded 04/14/18 09:10) Unknown antibiotics Adverse Reaction (Uncoded 04/14/18 09:10) Shortness of breath More of sensitivity Objective Cog/Ling/Com - Test Administered Vrwbjallf-Pdhkekrnks-Yovjwaulyhscf Assessment Administered: Yes Bimhammbi-Krpnvnaudz-Lgzegssfhkacp Assessment: Cognitive ? Linguistic skills were evaluated using patient/family interview, skilled observation and informal evaluation through tasks completed by the patient. - Orientation Orientation: Person, Place, Date, Birthdate, Medical Diagnosis - Answer Yes/No Questions Simple: WNL - Automatic Sequences Automatic Sequences: WNL - Repetition Words: WNL Sentences: WNL - Naming Naming in categories: WNL [place]: WNL - Conversational Tasks Conversational Tasks: WFL Comments: Noted at the start that she had word finding deficits x2. Then after initial deficits, no other anomia during the entire evaluation. She repots that it has gotten much better since March. - Comments Comments: Patient was able to answer questions, comment and fully participate in conversation. She reported that she has some difficulty when she is tired or frustrated. - Medication Completing medications independently: WNL - Information Gathering Information Gathering: WNL - Problem Solving Simple: WNL Complex: WNL Cognitive Linguistic Comments - Comments Comments Patient was able to tell strategies for medication administration with medications taken daily. Plan - Plan Plan: No therapy warranted at this time. Patient was given anomia strategies and education on results - Recommendations Treatment Warranted: No Education - Patient has Indicated that the Following Identified Educational Needs: None The Patient has indicated that they have no educational or learning abilities that may effect their care.: Yes - Patient Instruction Patient Education: Diagnosis, Home Exercise Program Person Taught: Patient Teaching Method: Discussion Response to teaching: Verbalize understanding
--- NOTE | 2018-10-26 15:28 | HP.PTREVAL ---
Biju Haas MD, It has been my pleasure to treat ANSELMO EDMONDSON over the last 9 visits for Weakness on Walking. Please see the progress note below for an update on the physical therapy plan of care! Subjective: Pt. reports R foot spasm/cramp after walking for a while, intermittently, subsides after a few minutes. Reports some achy feelings & tiredness when walking w/in the community. 12 days ago, cleared for PT & will follow up in 6 weeks. Pt. would like to continue therapy to further improve LE weakness & endurance. Objective/Function: Posture: FH, RS- can correct with verbal cues but does not maintain. Gait: decreased stance time on the R- no AD. Stairs:asc/desc - reciprocal w/ B UE, slow. HR/TR: able with UE A. SLS: L - WS but unable to SLS without significant ue a, R - 5 seconds then LOB righted by other LE. Palpation: not tender. 30 sec STS: 7 (normal:15). Balance: standing static: fair dynamic: poor, able to tandem walk w/ mod. sway and min. contact assist. Strength: Left ankle: 5/5, Knee: 4+/5, HIp: 4/5, Right: ankle: 4-/5, knee: 4+/5, Hip: 4-/5 Core: fair minus. Flex: HS: moderate, Gastroc: moderate. Special Test: dural signs: positive on the right, Slump test: positive on the right. Plan Plan: Focus on LE and core s/s with functional mobility. Pt to see PT next for reassessment - cont continuation of current POC. 10/26/18 - Cont. therapy for general LE & core s/s and improving muscular endurance to improve functional mobility. Goals Goal 1:: Patient will be I with HEP and progression Goal Time Frame: 4-6 Weeks Goal Progress: Progressing Goal 2:: Patient will ambulate <300 feet with a normalized gait pattern Goal Time Frame: 4-6 Weeks Goal Progress: Progressing Goal 3:: Patient will asc/desc 8 stairs recip with 1 HR Goal Time Frame: 4-6 Weeks Goal Progress: Progressing Goal 4:: Patient will maintain proper posture t/o tx session to demo increased core s/s Goal Time Frame: 4-6 Weeks Goal Progress: Progressing Goal 5:: Patient will report 0/10 pain for 1 week Goal Time Frame: 4-6 Weeks Anticipated Interventions Patient/Client Instruction: Educate patient on: Benefits of Fitness Program Therapeutic Exercise to Include: Strength training, Endurance training, Balance training, Body mechanics, Postural training, Flexibilty training, Gait and locomotor training, Dynamic Lumbar Stabilization For the Purpose of:: To improve muscle performance and motor function Please do not hesitate to contact me at [phone] by phone or if you have questions or concerns regarding this new plan of care! Sincerely, RADHA LaoT
--- NOTE | 2018-11-09 13:06 | HP.PTDCSUM ---
HP - PT D/C Summary It has been my pleasure to treat ANSELMO EDMONDSON under orders from Biju Haas MD, for the diagnosis of Weakness on Walking for a total of 13 visit(s). Discharge Date: Please see the following information for a summary of their discharge status. - Subjective Subjective: Pt. feels therapy has been great, just normal aches that come and go. - Pain B LE Pain Intensity (Out of 10): 0 - Overall Improvement % Improvement: 85 - Objective Objective/Function: Posture: FH, RS- can correct with verbal cues but does not maintain. Gait: no deviations noted. Stairs:asc/desc reciprocal no HR use. HR/TR: able with UE A. SLS: R/L 5 seconds before LOB righted by hands. Palpation: not tender. Balance: standing static: fair dynamic: fair, able to tandem stance. Strength: Left ankle: 5/5, Knee: 4+/5, HIp: 4/5, Right: ankle: 4+/5, knee: 4+/5, Hip: 4+/5 Core: poor. Flex: HS: moderate, Gastroc: moderate. Special Test: dural signs: negative, Slump test: negative - Goals Goal 1:: Patient will be I with HEP and progression Goal Progress: Goal Met Goal 2:: Patient will ambulate <300 feet with a normalized gait pattern Goal Progress: Goal Met Goal 3:: Patient will asc/desc 8 stairs recip with 1 HR Goal Progress: Goal Met Goal 4:: Patient will maintain proper posture t/o tx session to demo increased core s/s Goal Progress: Goal Met Goal 5:: Patient will report 0/10 pain for 1 week Goal Progress: Goal Met - Plan Plan: 11/09/18 Pt. D/C - instructed on beginning HEP at nearby [employer] for general LE/core strengthening. - D/C Information If there are questions or concerns regarding this patient's physical therapy, please feel free to call me at [phone]. Thank you for the referral of this patient. Sincerely, RADHA LaoT
== END 2018-11-09 19:00 | disposition home or self-care (01) ==
LOC: PT 11:30
PROVIDERS: Family Provider Family Medicine; PCP Family Medicine; Referring Provider Psychiatry & Neurology Neurology; Visit Provider Psychiatry & Neurology Neurology
DX: R53.1 Weakness (principal); R26.2 Difficulty in walking, not elsewhere classified; R47.01 Aphasia
CPT/HCPCS: 92523; 97110; 97161; 97164

== ENCOUNTER → 2018-12-16 09:31 | Outpatient (CLI) | payer MEDICARE, SELFPAY ==
[2018-12-16 08:58] VITALS: BMI 34.5
[2018-12-16 12:35] LABS: AST(SGOT) 19 U/L (15-37); Alanine Aminotransfer ALT/SGPT 32 U/L (13-56); Albumin, Serum 3.8 g/dL (3.2-5.0); Alkaline Phosphatase 99 U/L (45-117); Anion Gap 6 (5-15); BUN 17 mg/dL (7-18); BUN/Creat Ratio 16.8 RATIO (10-20); Calcium,Total 9.1 mg/dL (8.5-10.1); Chloride 106 mmol/L (98-107); Cholesterol 168 mg/dL (200); Creatinine, Serum 1.01 mg/dL (0.55-1.02); EST Glomerular Filtration Rate 58 mL/min (>60); Est Glom Filt Rate - Afr Amer 70 mL/min (>60); Glucose 110 mg/dL (74-106); High Density Lipoprotein 42 mg/dL; Potassium 4.4 mmol/L (3.5-5.1); Protein, Total 7.8 g/dL (6.4-8.2); Sodium Level 138 mmol/L (136-145); Triglycerides 215 mg/dL; Very Low Density Lipoprotein 43 mg/dL (5-40)
== END ==
PROVIDERS: Family Provider Family Medicine; PCP Family Medicine; Visit Provider Family Medicine
DX: I10 Essential (primary) hypertension (principal)
CPT/HCPCS: 36415; 80053; 80061

== ENCOUNTER → 2019-08-18 09:19 | Outpatient (CLI) | payer MEDICARE, SELFPAY ==
[2019-08-18 08:56] VITALS: BMI 34.5
[2019-08-18 13:01] LABS: Amylase 33 U/L (25-115); Lipase 86 U/L (73-393)
== END ==
PROVIDERS: PCP Family Medicine; Referring Provider Family Medicine; Visit Provider Family Medicine
DX: R10.13 Epigastric pain (principal)
CPT/HCPCS: 36415; 82150; 83690

== ENCOUNTER 2019-08-20 12:39 | Emergency (ER) | payer MEDICARE, MEDICAID, SELFPAY ==
[2019-08-18 08:56] VITALS: BMI 34.5
[2019-08-20 12:42] VITALS: BP 162/71; PULSE 69; RESP 17; TEMP 36.2; O2SAT 97; BMI 33.7
[2019-08-20 12:51] VITALS: PULSE 68; RESP 14; O2SAT 97
--- NOTE | 2019-08-20 13:06 | CT_ITS ---
STUDY: CT ABDOMEN AND PELVIS WITHOUT CONTRAST REASON FOR EXAM: Female, 69 years old. PT STATED MID TO LOWER ABDOM PAIN, HX OF TIA, HTN, HLD, HYSTERECTOMY, APPY, KS, DIAB RADIATION DOSAGE (If Supplied By Facility): CTDIvol = ( 13.05 ) mGy, DLP = ( 646.43 ) mGycm TECHNIQUE: Transaxial images were obtained from the dome of the diaphragm to the symphysis pubis without oral contrast, and without intravenous contrast. Sagittal and coronal images were reconstructed. Individualized dose optimization techniques were used for this CT. COMPARISON: None. FINDINGS: The visualized lung bases are unremarkable. The visualized portions of the heart are within normal limits. Normal liver. Normal gallbladder and extrahepatic biliary system. Normal spleen. Normal pancreas. Normal bilateral adrenal glands. Normal right kidney. Normal left kidney. Normal visualized stomach. Normal small intestine. There are colonic diverticula consistent with diverticulosis. History of prior appendectomy. There is diffuse atherosclerotic calcification of the abdominal aorta, without a demonstrated aneurysm. Normal inferior vena cava. Increased markings are seen in the root of the mesentery with a tiny lymph nodes. This is suggestive of a nonspecific mesenteritis. Normal urinary bladder. There is absence of the uterus consistent with a prior hysterectomy. Normal abdominal wall. Normal osseous structures. CT/Abdomen/Pelvis without Cont IMPRESSION: Nonspecific mild increased markings in the root of the mesentery with small lymph nodes. This is suggestive of a nonspecific mesenteritis. Electronically Signed: Mario Nelson, at 14:08 EDT , Service support ,
--- NOTE | 2019-08-20 13:12 | ED.VIS.GEN ---
History of Present Illness Chief Complaint: Abd Pain Informant: Patient Narrative: Patient is a 69-year-old female who presents to the emergency department for left-sided abdominal pain and black stools. The abdominal pain has been intermittent over the past week. She states that it can get up to a 10 out of 10. She is currently rating it a 5 out of 10. She tried taking Gaviscon for this which has not provided significant relief. She does not know aggravating or relieving factors. She describes as a burning sensation. She has had diverticulitis in the past which she believes this is going on now. Blood in the stool. Yesterday she had a black bowel movement and this continued into today. No diarrhea or constipation. Denies any urinary symptoms. She has been mildly nauseous but denies vomiting. She has not had any fevers or chills. No chest pain or shortness of breath. No lightheadedness. She has had multiple abdominal surgeries including hysterectomy, appendectomy, as well as ex lap. She has not had any overlying skin changes. No history of shingles. Past Medical History - Allergies and Home Meds Allergies/Adverse Reactions: Allergies albuterol Allergy (Severe, Verified 08/20/19 12:40) Chest tightness codeine Allergy (Severe, Verified 08/20/19 12:40) Nausea Iodine and Iodide Containing Produc Allergy (Severe, Verified 08/20/19 12:40) Anaphylaxis Sulfa (Sulfonamide Antibiotics) Allergy (Severe, Verified 08/20/19 12:40) Chest tightness dry throat tramadol Allergy (Severe, Verified 08/20/19 12:40) head spin colonidine Allergy (Severe, Uncoded 08/20/19 12:40) head spin narcotics Adverse Reaction (Unknown, Uncoded 08/20/19 12:40) Unknown antibiotics Adverse Reaction (Uncoded 08/20/19 12:40) Shortness of breath More of sensitivity Primary Care Physician: Noah Kitchen DO [Primary Care Provider] - 2 Days Prior records reviewed: Yes Past Medical History: - - Hypertension, hyperlipidemia, PCOS, colitis Surgical History: appendectomy, cataract, hysterectomy Smoking Status: Never smoker Drugs: None Review of Systems All systems negative except as indicated General: Denies: Chills, Fever, Sweats Eyes: Denies: Visual changes - bilaterally, Diplopia ENT: Denies: Rhinorrhea, Sore throat Cardiovascular: Denies: Chest pain, Palpitations Respiratory: Denies: Dyspnea, Cough, Dyspnea on exertion Gastrointestinal: Reports: Abdominal pain, Nausea, Melena. Denies: Vomiting, Diarrhea Genitourinary: Denies: Dysuria, Hematuria, Frequency Musculoskeletal: Denies: Back pain, Extremity Pain Skin: Denies: Rash, Wounds Neurological: Denies: Headache, Weakness, Numbness Hematologic: Denies: Easy bruising, Easy bleeding Physical Exam Vital Signs/Narrative: Vital Signs Temp Pulse Resp BP Pulse Ox 08/20/19 12:51 68 14 97 08/20/19 12:42 97.2 F L 69 17 162/71 H 97 Inital Vital Signs reviewed: Yes General: Well nourished, Well developed, No Acute Distress Head: Normocephalic, Atraumatic Eyes: Perrl, EOMI ENT: Moist mucous membranes, No rhinorrhea Neck: Supple, Nontender Cardiovascular: Regular rate, Regular rhythm, No murmurs Respiratory: No distress, CTA bilaterally, Chest nontender Abdomen: Soft, Nondistended, Normal bowel sounds, Tender - Very mild tenderness to deep palpation along the left upper and left lower quadrants.. Negative for: Guarding, Rebound tenderness Back: Nontender, Normal Inspection Extremities: Nontender, No edema Skin: Normal color, No rash Neurological: Alert, Oriented x3, Cranial nerves II-XII grossly intact, Normal Strength, Normal Sensation Psychological: Normal affect, Normal Mood Diagnostic/Tx/Re-eval - Medical Decision Making Patient is a 69-year-old female who presents to emerge department for intermittent abdominal pain. Upon arrival to the emerge department vital signs within normal limits and she is in no apparent distress. Physical exam is benign with very mild tenderness to deep palpation. Basic lab work being obtained, stool guaiac test being obtained. Will do CT scan of the abdomen/pelvis. Unable to use contrast as she has a history of anaphylaxis with this. Patient's lab work returned and she is not anemic. Her guaiac test was positive. CT scan showed a nonspecific mesenteritis. Throughout ED stay her abdominal pain has been well controlled without any treatment. Physical exam was very benign without any difficult abdominal pain. She has been stable throughout ED stay. I did call and discussed the findings with her PCP who is willing to see her on Friday morning if she calls to schedule an appointment. She potentially would benefit from an EGD if melena continues. I will start her on Protonix in the meantime. I recommend that she stop her ibuprofen as well as her Gaviscon. She denies any symptoms of lightheadedness, chest pain or shortness of breath. If she develops any of the symptoms or worsening abdominal pain or any fever/chills she is to return to the emergency department immediately. She understands and is agreeable with this plan. Will discharge home in stable condition. ED Disposition - Plan for ED Patient: Disposition: Home or Assisted Living Diagnosis: mesenteritis, Melena, Abdominal pain Instructions: Abdominal Pain, ED Hematochezia Stable Prescriptions: Pantoprazole Sodium [Protonix] 40 mg PO DAILY 30 Days #30 tab Transmission Status: Received by EARLENE GARCIA-[address] [facility] Referrals: Noah Kitchen DO [Primary Care Provider] - 2 Days
[2019-08-20 13:39] LABS: Absolute Lymphocyte Count 1.33 X10^3/uL (0.83-4.51); Basophil# 0.07 X10^3/uL; Basophil% 1.2 % (0-1); Eosinophil# 0.16 X10^3/uL; Eosinophils% 2.7 % (0-5); Hematocrit 37.4 % (37-47); Hemoglobin 12.5 g/dL (12.0-15.0); Lymphocyte # 1.33 X10^3/ul (4.0); Lymphocyte % 22.2 % (19-41); Mean Corp Hgb Conc 33.4 g/dL (32-36); Mean Corpuscular Hgb 30.5 pg (27.0-32.0); Mean Corpuscular Volume 91.2 fL (81-99); Monocyte# 0.44 X10^3/uL; Monocyte% 7.3 % (0-10); NRBC Flagged by Analyzer 0 % (0-5); Neutrophil # 3.96 X10^3/uL (2.7-7.7); Neutrophil % 66.1 % (47-70); Platelet Count 281 K/mm3 (150-450); RBC Distribution Width CV 12.9 % (11.6-14.6); RBC Distribution Width SD 42.7 fl (35.1-43.9)
[2019-08-20 13:47] LABS: ALB/GLOB Ratio 0.9 RATIO (0.9-2.4); AST(SGOT) 18 U/L (15-37); Alanine Aminotransfer ALT/SGPT 27 U/L (13-56); Albumin, Serum 3.6 g/dL (3.2-5.0); Alkaline Phosphatase 105 U/L (45-117); Anion Gap 6 (5-15); BUN 14 mg/dL (7-18); BUN/Creat Ratio 14.2 RATIO (10-20); Calcium,Total 8.8 mg/dL (8.5-10.1); Chloride 109 mmol/L (98-107); Creatinine, Serum 0.98 mg/dL (0.55-1.02); EST Glomerular Filtration Rate 59 mL/min (>60); Est Glom Filt Rate - Afr Amer 72 mL/min (>60); Estimated Creatinine Clearance 38.37 ml/min; Globulin 4.1 g/dL (2.2-4.2); Glucose 107 mg/dL (74-106); Lipase 86 U/L (73-393); Potassium 4.2 mmol/L (3.5-5.1); Protein, Total 7.7 g/dL (6.4-8.2); Sodium Level 140 mmol/L (136-145)
[2019-08-20 14:29] LABS: Mucous, Urine 0 SEEN /hpf (<or=2+); Red Blood Cells-Urine 0 SEEN /hpf (0-5)
[2019-08-20 14:31] LABS: Color, Urine Straw (Yellow); Glucose, Dipstick Normal (Normal); Ketone-Dipstick Negative (Negative); Leukocyte Esterase-Dipstick 25 /ul (Negative); Nitrite-Dipstick Negative (Negative); Occult Blood-Urine Negative /ul (Negative); Protein-Dipstick Negative (Negative); Urine Bilirubin Dipstick Negative (Negative); Urine Clarity Clear (Clear); Urine Urobilinogen Normal (Normal)
[2019-08-20 14:41] VITALS: BP 143/32; PULSE 58; RESP 18; O2SAT 96
[2019-08-20 14:47] LABS: Amorphous Sediment 1+; Bacteria 1+ /hpf (None Seen); Squamous Epithelial Cells - UA 0-5 SEEN /hpf (5-10); White Blood Cells 0-5 SEEN /hpf (0-5)
[2019-08-20 16:33] VITALS: BP 156/49; PULSE 50; RESP 18; O2SAT 97
== END 2019-08-20 16:34 | disposition home or self-care (01) ==
PROVIDERS: Emergency Provider Emergency Medicine; PCP Family Medicine
DX: K92.1 Melena (principal); R10.9 Unspecified abdominal pain; I10 Essential (primary) hypertension; E78.5 Hyperlipidemia, unspecified; Z79.82 Long term (current) use of aspirin
CPT/HCPCS: 74176; 80053; 81001; 82274; 83690; 85025; 96372; 99282; A4216

== ENCOUNTER → 2019-08-24 10:04 | Outpatient (CLI) | payer MEDICARE, SELFPAY ==
[2019-08-24 09:32] VITALS: BMI 33.7
== END ==
PROVIDERS: PCP Family Medicine; Referring Provider Internal Medicine; Visit Provider Internal Medicine
DX: R07.9 Chest pain, unspecified (principal)
CPT/HCPCS: 36415; 84484

== ENCOUNTER 2019-10-05 11:12 | Emergency (ER) | payer MEDICARE, MEDICAID, SELFPAY ==
[2019-09-22 09:58] VITALS: BMI 33.7
[2019-10-05 11:12] VITALS: BP 151/69; PULSE 68; RESP 20; TEMP 36.8; O2SAT 100; BMI 34.2
--- NOTE | 2019-10-05 11:32 | ED.VIS.GEN ---
History of Present Illness Informant: Patient <Vasyl Boateng - Last Filed: 10/05/19 11:32> Narrative: Patient is a 69-year-old female who presents to the ED for wound to the left dorsal forearm and hand. This is been present for about a month now. She states she has had lesions like this before in the past. She believes she might of had a spider bite. She states that she has been squeezing it to get out the pocket. She squeezed 3 little things out of it. She brought them with her. They are small circular yellow falls. She states that she has been using a silver ointment over the wounds over the past week. This has not been giving significant relief. Denies any streaking of the arm. She has not had any systemic symptoms including fever/chills or nausea/vomiting. She denies any loss of sensation or muscle strength. No joint swelling. Otherwise no discharge from the area. <Carlos Jacobo - Last Filed: 10/05/19 11:50> Chief Complaint: Wound Past Medical History Surgical History: appendectomy, cataract, hysterectomy Smoking Status: Never smoker <Vasyl Boateng - Last Filed: 10/05/19 11:32> Prior records reviewed: Yes Past Medical History: - - Hypertension, hyperlipidemia, TIA <Carlos Jacobo - Last Filed: 10/05/19 11:50> - Allergies and Home Meds Allergies/Adverse Reactions: Allergies albuterol Allergy (Severe, Verified 08/20/19 12:40) Chest tightness codeine Allergy (Severe, Verified 08/20/19 12:40) Nausea Iodine and Iodide Containing Produc Allergy (Severe, Verified 08/20/19 12:40) Anaphylaxis Sulfa (Sulfonamide Antibiotics) Allergy (Severe, Verified 08/20/19 12:40) Chest tightness dry throat tramadol Allergy (Severe, Verified 08/20/19 12:40) head spin colonidine Allergy (Severe, Uncoded 08/20/19 12:40) head spin narcotics Adverse Reaction (Unknown, Uncoded 08/20/19 12:40) Unknown antibiotics Adverse Reaction (Uncoded 08/20/19 12:40) Shortness of breath More of sensitivity Primary Care Physician: Noah Kitchen DO [Primary Care Provider] - Review of Systems General: Denies: Chills, Fever, Sweats ENT: Denies: Rhinorrhea, Sore throat Cardiovascular: Denies: Chest pain, Palpitations Respiratory: Denies: Dyspnea, Cough, Dyspnea on exertion Gastrointestinal: Denies: Abdominal pain, Nausea, Vomiting Musculoskeletal: Denies: Back pain, Extremity Pain Skin: Reports: Wounds. Denies: Rash Neurological: Denies: Headache, Weakness, Numbness Hematologic: Denies: Easy bruising, Easy bleeding <Carlos Jacobo - Last Filed: 10/05/19 11:50> Physical Exam Vital Signs/Narrative: Vital Signs Temp Pulse Resp BP Pulse Ox 10/05/19 11:12 98.2 F 68 20 H 151/69 H 100 <Vasyl Boateng - Last Filed: 10/05/19 11:32> Vital Signs/Narrative: Vital Signs Temp Pulse Resp BP Pulse Ox 10/05/19 11:12 98.2 F 68 20 H 151/69 H 100 Inital Vital Signs reviewed: Yes General: Well nourished, Well developed, No Acute Distress Head: Normocephalic, Atraumatic Eyes: Perrl, EOMI ENT: Moist mucous membranes, No rhinorrhea Neck: Supple, Nontender Cardiovascular: Regular rate, Regular rhythm, No murmurs Respiratory: No distress, CTA bilaterally, Chest nontender Abdomen: Soft, Nontender, Nondistended, Normal bowel sounds Back: Nontender, Normal Inspection Extremities: Nontender, No edema Skin: - - Left dorsal forearm has a 2 cm wound present. Mild erythema surrounding this. No palpable abscess underneath. No mass. 1 cm circular skin fabien to the left hand as well. No evidence of cellulitis rounding this wound. No streaking up the arm. Range of motion. Neurovascular intact. Neurological: Alert, Oriented x3, Cranial nerves II-XII grossly intact, Normal Strength, Normal Sensation Psychological: Normal affect, Normal Mood <Carlos Jacobo - Last Filed: 10/05/19 11:50> Diagnostic/Tx/Re-eval - Medical Decision Making Patient presents to the ED for wounds to the left forearm and hand. Signs within normal limits. She has no systemic symptoms. <Carlos Jacobo - Last Filed: 10/05/19 11:50> ED Disposition <Vasyl Boateng - Last Filed: 10/05/19 11:32> <Carlos Jacobo - Last Filed: 10/05/19 11:50> - Plan for ED Patient: Referrals: Noah Kitchen DO [Primary Care Provider] -
--- NOTE | 2019-10-05 11:51 | ED.DCSUM_ITS ---
History of Present Illness Chief Complaint: Wound Informant: Patient Narrative: Patient is a 69-year-old female who presents to the ED for wound to the left dorsal forearm and hand. This is been present for about a month now. She states she has had lesions like this before in the past. She believes she might of had a spider bite. She states that she has been squeezing it to get out the pocket. She squeezed 3 little things out of it. She brought them with her. They are small circular yellow falls. She states that she has been using a silver ointment over the wounds over the past week. This has not been giving significant relief. Denies any streaking of the arm. She has not had any systemic symptoms including fever/chills or nausea/vomiting. She denies any loss of sensation or muscle strength. No joint swelling. Otherwise no discharge from the area. Past Medical History - Allergies and Home Meds Allergies/Adverse Reactions: Allergies albuterol Allergy (Severe, Verified 08/20/19 12:40) Chest tightness codeine Allergy (Severe, Verified 08/20/19 12:40) Nausea Iodine and Iodide Containing Produc Allergy (Severe, Verified 08/20/19 12:40) Anaphylaxis Sulfa (Sulfonamide Antibiotics) Allergy (Severe, Verified 08/20/19 12:40) Chest tightness dry throat tramadol Allergy (Severe, Verified 08/20/19 12:40) head spin colonidine Allergy (Severe, Uncoded 08/20/19 12:40) head spin narcotics Adverse Reaction (Unknown, Uncoded 08/20/19 12:40) Unknown antibiotics Adverse Reaction (Uncoded 08/20/19 12:40) Shortness of breath More of sensitivity Primary Care Physician: Noah Kitchen DO [Primary Care Provider] - 5-7 Days Surgical History: appendectomy, cataract, hysterectomy Smoking Status: Never smoker Review of Systems All systems negative except as indicated General: Denies: Chills, Fever, Sweats ENT: Denies: Rhinorrhea, Sore throat Cardiovascular: Denies: Chest pain, Palpitations Respiratory: Denies: Dyspnea, Cough, Dyspnea on exertion Gastrointestinal: Denies: Abdominal pain, Nausea, Vomiting, Diarrhea Musculoskeletal: Denies: Back pain, Extremity Pain Skin: Reports: Wounds. Denies: Rash Neurological: Denies: Headache, Weakness, Numbness Hematologic: Denies: Easy bruising, Easy bleeding Physical Exam Vital Signs/Narrative: Vital Signs Temp Pulse Resp BP Pulse Ox 10/05/19 11:12 98.2 F 68 20 H 151/69 H 100 Inital Vital Signs reviewed: Yes General: Well nourished, Well developed, No Acute Distress Head: Normocephalic, Atraumatic Eyes: Perrl, EOMI ENT: Moist mucous membranes, No rhinorrhea Neck: Supple, Nontender Cardiovascular: Regular rate, Regular rhythm, No murmurs Respiratory: No distress, CTA bilaterally, Chest nontender Abdomen: Soft, Nontender, Nondistended Back: Nontender, Normal Inspection Extremities: Nontender, No edema, - - No joint swelling. Full range of motion of joints of left arm. Skin: Normal color, - - Left forearm has a 2 cm wound present. Mild erythema surrounding this. No discharge. No appreciable abscess. 1 cm round scab to left hand. No surrounding cellulitis. Vascularly intact. Neurological: Alert, Oriented x3, Cranial nerves II-XII grossly intact, Normal Strength, Normal Sensation Psychological: Normal affect, Normal Mood Diagnostic/Tx/Re-eval - Medical Decision Making Patient presents to the emerge department for 2 wounds on the left upper extremity. I did do an ultrasound bedside of the area which did not reveal any abscess. There was some cobblestoning present. Will place on Keflex. She can continue to use the topical ointment as written on the packaging. If she develops any systemic symptoms or streaking up the arm she is to return to the emergency department immediately. She otherwise needs to follow-up with her PCP. She understands and is agreeable this plan. Will discharge home in stable condition. ED Disposition - Plan for ED Patient: Disposition: Home or Assisted Living Diagnosis: Arm wound Instructions: ED Wound Puncture General Prescriptions: Cephalexin [Keflex] 500 mg PO Q6 7 Days #28 cap Transmission Status: Received by EARLENE GARCIA-[address] [facility] Referrals: Noah Kitchen DO [Primary Care Provider] - 5-7 Days
[2019-10-05 12:46] VITALS: BP 151/69; PULSE 68; RESP 18
== END 2019-10-05 12:48 | disposition home or self-care (01) ==
PROVIDERS: Emergency Provider Emergency Medicine; PCP Family Medicine
DX: S50.912A Unspecified superficial injury of left forearm, initial encounter (principal); X58.XXXA Exposure to other specified factors, initial encounter
CPT/HCPCS: 99282

== ENCOUNTER 2020-03-14 11:48 | Emergency (ER) | payer MEDICARE, MEDICAID, SELFPAY ==
[2020-02-22 10:33] VITALS: BMI 32.1
[2020-03-14 11:49] VITALS: BP 135/100; PULSE 83; RESP 16; TEMP 36.7; O2SAT 98; BMI 33.5
--- NOTE | 2020-03-14 12:01 | EKG12_ITS ---
Test Reason : NEURO Blood Pressure : / mmHG Vent. Rate : 073 BPM Atrial Rate : 073 BPM P-R Int : 156 ms QRS Dur : 078 ms QT Int : 368 ms P-R-T Axes : 056 033 026 degrees QTc Int : 405 ms Normal sinus rhythm Normal ECG Confirmed by ATTILA LEOS, SANTI ([id number]), sports editor GEETA WILEY ([id number]) on 03/16/2020 9:45:32 AM Referred By: MARY Confirmed By:SANTI AIKEN MD
--- NOTE | 2020-03-14 12:01 | CT_ITS ---
STUDY: CT BRAIN WITHOUT CONTRAST REASON FOR EXAM: Female, 69 years old. CONFUSION, HEAD INJURY 1 WEEK AGO. BRUISE ON LT FOREHEAD RADIATION DOSAGE (If Supplied By Facility): CTDIvol = ( 44.99 ) mGy, DLP = ( 779.24 ) mGycm TECHNIQUE: Transaxial CT imaging of the brain was performed without administration of intravenous contrast material. Individualized dose optimization techniques were used for this CT. COMPARISON: Comparison is made with prior study dated 03/13/2018. FINDINGS: Normal soft tissue structures. There is hyperostosis frontalis internus. Normal size ventricles and extra-axial spaces for the patient''s age. Normal white matter tracts of the cerebral hemispheres. There are small punctate calcifications of the basal ganglia which are seen in the aging brain as a normal variant. Normal brainstem. Normal cerebellum. There is no intracranial hemorrhage. There are no findings of an acute ischemic infarction. Normal visualized paranasal sinuses. CT/Brain/Head without Contrast IMPRESSION: Normal unenhanced CT scan of the brain. Electronically Signed: Mario Nelson MD at 13:19 EST , Service support ,
--- NOTE | 2020-03-14 12:04 | ED.DCSUM_ITS ---
History of Present Illness Chief Complaint: Neuro S/Sx Informant: Patient Onset: Today Narrative: Patient presents with episode of confusion this morning. She states for the past several hours she trouble remembering where she was and simple things about herself such as what her insurance was. She did hit her self on the forehead last week with a small wooden ironing board. She has a bruise to her forehead. She was not seen after that injury. She is not sure if this morning's episode is related to that or not. At this time patient seems to be back to her baseline. She denies having any difficulty with speech, weakness, or paresthesias. - Past Medical History (1) Segmental and somatic dysfunction of cervical region Status: Chronic (2) Segmental and somatic dysfunction of lumbar region Status: Chronic (3) Segmental and somatic dysfunction of thoracic region Status: Chronic (4) Anemia Status: Chronic (5) Arthritis Status: Chronic (6) Asthma Status: Chronic (7) Back pain Status: Chronic (8) Colitis Status: Chronic (9) GERD (gastroesophageal reflux disease) Status: Chronic (10) High cholesterol Status: Chronic (11) Hypertension Status: Chronic (12) IBS (irritable bowel syndrome) Status: Chronic Past Medical History - Allergies and Home Meds Allergies/Adverse Reactions: Allergies albuterol Allergy (Severe, Verified 03/14/20 11:49) Chest tightness codeine Allergy (Severe, Verified 03/14/20 11:49) Nausea Iodine and Iodide Containing Produc Allergy (Severe, Verified 03/14/20 11:49) Anaphylaxis Sulfa (Sulfonamide Antibiotics) Allergy (Severe, Verified 03/14/20 11:49) Chest tightness dry throat tramadol Allergy (Severe, Verified 03/14/20 11:49) head spin colonidine Allergy (Severe, Uncoded 03/14/20 11:49) head spin narcotics Adverse Reaction (Unknown, Uncoded 03/14/20 11:49) Unknown antibiotics Adverse Reaction (Uncoded 03/14/20 11:49) Shortness of breath More of sensitivity Primary Care Physician: Noah Kitchen DO [Primary Care Provider] - Surgical History: appendectomy, cataract, hysterectomy Smoking Status: Never smoker Review of Systems General: Denies: Chills, Fever Eyes: Denies: Visual changes - bilaterally ENT: Denies: Bilateral ear pain Cardiovascular: Denies: Chest pain Respiratory: Denies: Dyspnea, Cough Gastrointestinal: Denies: Abdominal pain, Nausea Genitourinary: Denies: Dysuria, Hematuria Skin: Reports: Wounds Neurological: Denies: Headache, Weakness, Parasthesia Hematologic: Denies: Easy bruising, Easy bleeding Allergy: Denies: Uticaria Physical Exam Vital Signs/Narrative: Vital Signs Temp Pulse Resp BP Pulse Ox 03/14/20 11:49 98.1 F 83 16 135/100 H 98 Inital Vital Signs reviewed: Yes General: Well nourished, Well developed Head: - - 3 x 4 cm area of ecchymosis to the left forehead. Eyes: Perrl, EOMI ENT: Moist mucous membranes Neck: Supple Cardiovascular: Regular rate, Regular rhythm Respiratory: No distress, CTA bilaterally Abdomen: Soft, Nontender Extremities: Nontender Skin: Normal color, No rash Neurological: Alert, Oriented x3, Normal Strength, Normal Sensation, - - NIH equals 0 Psychological: Normal affect Diagnostic/Tx/Re-eval Impressions Brain CT 03/14/20 12:01 IMPRESSION: Normal unenhanced CT scan of the brain. Electronically Signed: Mario Nelson MD at 13:19 EST , Service support , 03/14/20 12:01 Brain/Head without Contrast [CT] Stat Laboratory Results 03/14/20 03/14/20 03/14/20 12:18 12:40 12:40 WBC 6.0 RBC 4.37 Hgb 12.9 Hct 39.5 MCV 90.4 MCH 29.5 MCHC 32.7 RDW Std Deviation 45.6 H RDW Coeff of Maxine 13.6 Plt Count 278 MPV 9.6 Immature Gran % (Auto) 0.200 Neut % (Auto) 75.4 H Lymph % (Auto) 18.5 L [place] % (Auto) 4.3 Eos % (Auto) 0.8 Baso % (Auto) 0.8 Absolute Neuts (auto) 4.5 Absolute Lymphs (auto) 1.11 Nucleated RBC % 0 Sodium 137 Potassium 4.1 Chloride 105 Carbon Dioxide 26.0 Anion Gap 6 BUN 18 Creatinine 0.96 Estim Creat Clear Calc 39.17 Est GFR (MDRD) Af Amer 74 Est GFR (MDRD) Non-Af 61 BUN/Creatinine Ratio 18.8 Glucose 234 H Calcium 9.3 Troponin I < 0.015 Urine Color Yellow Urine Clarity Sl. Cloudy Urine pH 6.0 Ur Specific [place] 1.015 Urine Protein Negative Urine Glucose (UA) Normal Urine Ketones Negative Urine Occult Blood 10 H Urine Nitrite Negative Urine Bilirubin Negative Urine Urobilinogen Normal Ur Leukocyte Esterase 100 H Urine RBC 0-5 SEEN Urine WBC 10-25 SEEN Ur Squamous Epith Cells 0-5 SEEN Urine Bacteria 1+ Urine Mucus 0 SEEN POC Glucose 03/14/20 12:53 WBC RBC Hgb Hct MCV MCH MCHC RDW Std Deviation RDW Coeff of Maxine Plt Count MPV Immature Gran % (Auto) Neut % (Auto) Lymph % (Auto) [place] % (Auto) Eos % (Auto) Baso % (Auto) Absolute Neuts (auto) Absolute Lymphs (auto) Nucleated RBC % Sodium Potassium Chloride Carbon Dioxide Anion Gap BUN Creatinine Estim Creat Clear Calc Est GFR (MDRD) Af Amer Est GFR (MDRD) Non-Af BUN/Creatinine Ratio Glucose Calcium Troponin I Urine Color Urine Clarity Urine pH Ur Specific [place] Urine Protein Urine Glucose (UA) Urine Ketones Urine Occult Blood Urine Nitrite Urine Bilirubin Urine Urobilinogen Ur Leukocyte Esterase Urine RBC Urine WBC Ur Squamous Epith Cells Urine Bacteria Urine Mucus POC Glucose 206 H - EKG Initial EKG Interpretation: Sinus Rhythm - Sinus at 78 with no acute ischemia. - Medical Decision Making CT head is unremarkable. Blood work is unremarkable. Urine does reveal evidence of infection. This certainly could make her feel more foggy this morning and have difficulty thinking of things. At this time patient feels that she is back to her baseline. Patient's neighbor will come pick her up and social work will speak with the neighbor to ensure they will follow up with her and check on her frequently. Patient be given a course of Keflex for her UTI. ED Disposition - Plan for ED Patient: Disposition: Home or Assisted Living Diagnosis: UTI (urinary tract infection) Instructions: ED Bladder Infection, Female (Adult) Prescriptions: Cephalexin [Keflex] 500 mg PO Q6 #20 cap Transmission Status: Pending to [facility] Referrals: Noah Kitchen, [Primary Care Provider] - 3-5 Days if not improving
[2020-03-14 12:25] LABS: Mucous, Urine 0 SEEN /hpf (<or=2+)
[2020-03-14 12:28] LABS: Color, Urine Yellow (Yellow); Glucose, Dipstick Normal (Normal); Ketone-Dipstick Negative (Negative); Leukocyte Esterase-Dipstick 100 /ul (Negative); Nitrite-Dipstick Negative (Negative); Occult Blood-Urine 10 /ul (Negative); Protein-Dipstick Negative (Negative); Specific Gravity, Urine 1.015 (1.002-1.030); Urine Bilirubin Dipstick Negative (Negative); Urine Clarity Sl. Cloudy (Clear); Urine Urobilinogen Normal (Normal)
[2020-03-14 12:35] LABS: Bacteria 1+ /hpf (None Seen); Red Blood Cells-Urine 0-5 SEEN /hpf (0-5); Squamous Epithelial Cells - UA 0-5 SEEN /hpf (5-10); White Blood Cells 10-25 SEEN /hpf (0-5)
[2020-03-14 12:46] VITALS: BMI 34.7
[2020-03-14 13:00] LABS: Bedside Glucose 206 mg/dL (70-110)
[2020-03-14 13:00] LABS: Absolute Lymphocyte Count 1.11 X10^3/uL (0.83-4.51); Absolute Neutrophil Count 4.5 X10^3/uL (2.0-7.7); Basophil# 0.05 X10^3/uL; Basophil% 0.8 % (0-1); Eosinophil# 0.05 X10^3/uL; Eosinophils% 0.8 % (0-5); Hematocrit 39.5 % (37-47); Hemoglobin 12.9 g/dL (12.0-15.0); Lymphocyte # 1.11 X10^3/ul (4.0); Lymphocyte % 18.5 % (19-41); Mean Corp Hgb Conc 32.7 g/dL (32-36); Mean Corpuscular Hgb 29.5 pg (27.0-32.0); Mean Corpuscular Volume 90.4 fL (81-99); Mean Platelet Vol. 9.6 fl (6.2-12.0); Monocyte# 0.26 X10^3/uL; Monocyte% 4.3 % (0-10); NRBC Flagged by Analyzer 0 % (0-5); Neutrophil # 4.53 X10^3/uL (2.7-7.7); Neutrophil % 75.4 % (47-70); Platelet Count 278 K/mm3 (150-450); RBC Distribution Width CV 13.6 % (11.6-14.6); RBC Distribution Width SD 45.6 fl (35.1-43.9); Red Blood Count 4.37 M/mm3 (4.2-5.4)
[2020-03-14 13:17] LABS: Anion Gap 6 (5-15); BUN 18 mg/dL (7-18); BUN/Creat Ratio 18.8 RATIO (10-20); Calcium,Total 9.3 mg/dL (8.5-10.1); Chloride 105 mmol/L (98-107); Creatinine, Serum 0.96 mg/dL (0.55-1.02); EST Glomerular Filtration Rate 61 mL/min (>60); Est Glom Filt Rate - Afr Amer 74 mL/min (>60); Estimated Creatinine Clearance 39.17 ml/min; Glucose 234 mg/dL (74-106); Potassium 4.1 mmol/L (3.5-5.1); Sodium Level 137 mmol/L (136-145)
[2020-03-14 13:24] VITALS: BP 125/70; PULSE 74; RESP 13; O2SAT 96
--- NOTE | 2020-03-14 13:44 | CM.ED ---
Social Work Consult: Discharge Planning Informant: Dr. Gisele Jaquez concerned about patient being able to return to home alone due to patient with intermittent confusion. Met with patient in room. Introduced self and social work job titles role. Patient agreeable to speak with this social work job titles. Patient reports to live alone in an apartment setting. Patient reports to be independent with all activities of daily life and to drive self. Patient reports to have a neighbor, Emerald that checks on me often. Patient reports to have family that lives local that checks in on patient as well. Patient alert and oriented x3. Patient with some difficulty with word finding. Patient reports plan to not drive until I start feeling better. Patient reports that Emerald will be picking patient up today and plans to check in with patient more often over the next few days. Patient is agreeable to medical team confirming with Emerald that Emerald will be checking in. Patient denies any concerns on returning to home and reports to have a medical alert button. Patient with a pleasant and engaged affect. Active support and listening provided. Patient denies community needs. Patient has support in the community and a neighbor that will be checking in with patient. This social work job titles able to confirm that Emerald will be checking in with patient. Updated Dr. Jaquez. Dr. Jaquez comfortable with patient discharging to home with support from Emerald. Keegan Isabel MSW, [place]
[2020-03-14] MEDS: Cephalexin 250 MG Capsule 500 MG PO (13:55)
== END 2020-03-14 14:07 | disposition home or self-care (01) ==
PROVIDERS: Emergency Provider Emergency Medicine; PCP Family Medicine
DX: N39.0 Urinary tract infection, site not specified (principal); Z90.710 Acquired absence of both cervix and uterus
CPT/HCPCS: 70450; 80048; 81001; 82962; 84484; 85025; 93005; 96374; 99285

== ENCOUNTER → 2020-05-10 14:27 | Outpatient (CLI) | payer MEDICARE, SELFPAY ==
[2020-05-10 16:23] LABS: Hemoglobin A1c 6.4 % (3.8-5.6)
[2020-05-10 16:35] LABS: Anion Gap 5 (5-15); BUN 13 mg/dL (7-18); BUN/Creat Ratio 13.4 RATIO (10-20); Calcium,Total 8.9 mg/dL (8.5-10.1); Chloride 105 mmol/L (98-107); Creatinine, Serum 0.97 mg/dL (0.55-1.02); EST Glomerular Filtration Rate 60 mL/min (>60); Est Glom Filt Rate - Afr Amer 73 mL/min (>60); Glucose 71 mg/dL (74-106); Potassium 3.9 mmol/L (3.5-5.1); Sodium Level 135 mmol/L (136-145)
== END ==
PROVIDERS: PCP Family Medicine; Visit Provider Family Medicine
DX: R73.9 Hyperglycemia, unspecified (principal); R73.09 Other abnormal glucose
CPT/HCPCS: 36415; 80048; 83036